=== PATIENT | male | born 1970 | race Two or more races ===

== ENCOUNTER 2024-05-25 09:35 | Emergency (ER) | payer MEDICAID, OTHER ==
[~2024-05-25] VITALS: Ht 157.5 cm; Wt 54.2 kg
[2024-05-25 09:45] VITALS: BP 102/65; PULSE 78; RESP 18; TEMP 98.2; O2SAT 99
--- NOTE | 2024-05-25 10:05 | ED.PDOC ---
History of Present Illness HPI Comments 53-year-old male with a history of kidney disease on dialysis Saturday hypertension diabetes came to the ER because he wanted his PICC line that is placed into the subclavian vein to be removed. He was here few days ago for removal for which she was referred to come back today. Patient did have his dialysis prior to coming to the ER. Denies chest pain. Denies shortness a breath. He does state that the PICC line was placed few months ago for sepsis. He is currently not on any antibiotics. Denies any other symptoms. Chief Complaint: Tube Replacement Time Seen by MD: 09:44 Primary Care Provider: ambrose Reviewed Notes: Nurses Notes, Medications, Allergies Allergies: Coded Allergies: NO KNOWN ALLERGIES (Unverified , 05/25/24) Information Source: Patient Mode of Arrival: Wheelchair Severity: Moderate Timing: Months Duration: Since onset Past Medical History PAST MEDICAL HISTORY: DM, ESRD, HTN Surgical History: Denies all surgeries Social History Smoker: Non-Smoker Alcohol: Denies ETOH Use Drugs: Denies Drug Use Constitutional: denies: chills, diaphoresis, fatigue, fever, malaise, sweats, weakness, others EENTM: denies: blurred vision, double vision, ear bleeding, ear discharge, ear drainage, ear pain, ear ringing, eye pain, eye redness, hearing loss, mouth pain, mouth swelling, nasal discharge, nose bleeding, nose congestion, nose pain, photophobia, tearing, throat pain, throat swelling, voice changes, others Respiratory: denies: cough, hemoptysis, orthopnea, SOB at rest, shortness of breath, SOB with excertion, stridor, wheezing, others Cardiovascular: denies: chest pain, dizzy spells, diaphoresis, Dyspnea on exertion, edema, irregular heart beat, left arm pain, lightheadedness, palpitations, PND, syncope, others Gastrointestinal: denies: abdomen distended, abdominal pain, blood streaked bowels, constipated, diarrhea, dysphagia, difficulty swallowing, hematemesis, melena, nausea, poor appetite, poor fluid intake, rectal bleeding, rectal pain, vomiting, others Genitourinary: denies: burning, dysuria, flank pain, frequency, hematuria, incontinence, penile discharge, penile sore, pain, testicle pain, testicle swelling, urgency, others Neurological: denies: dizziness, fainting, headache, left sided numbness, left sided weakness, numbness, paresthesia, pre-existing deficit, right sided numbne ss, right sided weakness, seizure, speech problems, tingling, tremors, weakness, others Musculoskeletal: denies: back pain, gout, joint pain, joint swelling, muscle pain, muscle stiffness, neck pain, others Integumetry: denies: bruises, change in color, change in hair/nails, dryness, laceration, lesions, lumps, rash, wounds, others Allergic/Immunocompromised: denies: Difficulty Healing, Frequent Infections, Hives, Itching, others Hematologic/Lymphatic: denies: anemia, blood clots, easy bleeding, easy bruising, swollen glands, others Endocrine: denies: excessive hunger, excessive sweating, excessive thirst, excessive urination, flushing, intolerance to cold, intolerance to heat, unexplained weight gain, unexplained weight loss, others Psychiatric: denies: anxiety, bipolar disorder, depression, hopeless, panic disorder, schizophrenia, sleepless, suicidal, others Physical Exam General Appearance: Moderate Distress HEENT: Normal ENT Inspection, Pharynx Normal, TMs Normal Neck: Full Range of Motion, Non-Tender, Normal, Normal Inspection Respiratory: Chest Non-Tender, Lungs Clear, No Accessory Muscle Use, No Respiratory Distress, Normal Breath Sounds Cardiovascular: No Edema, No JVD, No Murmur, No Gallop, Normal Peripheral Pulses, Regular Rate/Rhythm Breast Exam: Deferred Gastrointestinal: No Organomegaly, Non Tender, No Pulsatile Mass, Normal Bowel Sounds, Soft Genitalia: Deferred Pelvic: Deferred Rectal: Deferred Extremities: No calf tenderness, No pedal edema Musculoskeletal : Apperance: Normal Neurologic: Alert, No Motor Deficits, No Sensory Deficits Cerebellar Function: NOT DONE Reflexes: NOT DONE Skin: Normal Color Peripheral Pulses: 3+ Radial (R), 3+ Radial (L) Lymphatic: No Adenopathy Was a procedure done? Was a procedure done?: No Differential Dx Considerations may include: Anemia Electrolyte imbalance X-Ray, Labs, Meds, VS Vital Signs Date Time Temp Pulse Resp B/P (MAP) Pulse Ox O2 Delivery O2 Flow Rate FiO2 05/25/24 09:45 98.2 78 18 102/65 (77) 99 98.2 05/25/24 09:45 78 18 99 Room Air* 0 21 05/25/24 09:42 98.3 79 17 130/75 (93) 95 98.3 Lab Test 05/25/24 10:23 Range/Units Prothrombin Time 12.0 H 9.3-11.8 sec Prothrombin Time INR 1.15 0.9-1.15 Patient alert. Has PICC line placed into the subclavian vein. Vitals stable. Answering all questions. Just came from dialysis. No leg swelling. No shortness a breath. No sign of any infection. Patient comfortable. Intervention radiology consultation. Explained to the patient. Continue monitoring. Time of 1ST Reevaluation: 10:03 Reevaluation 1ST: Improved Patient Education/Counseling: Diagnosis, Treatment, Prognosis, Need For Follow Up Family Education/Counseling: No Family Present Departure 1 Departure Time of Disposition: 10:04 Impression: Primary Impression: End stage renal disease Disposition: ADMITTED INPATIENT Admit to: Med Surg Condition: Guarded Critical Care Note Critical Care Time?: No Stability Stability form required: No Heart Score Heart Score: Heart Score Response (Comments) Value History N/A 0 EKG N/A 0 Age N/A 0 Risk Factors N/A 0 Troponin N/A 0 Total 0 SESAR ROSS MD May 25, 2024 10:05
[2024-05-25 10:53] LABS: INR 1.15 (0.9-1.15)
[2024-05-25 11:22] LABS: Chloride 99 mmol/L (98-107); Potassium 3.5 mmol/L (3.5-5.1); Sodium 138 mmol/L (136-145)
[2024-05-25 11:23] LABS: Anion Gap 7 (5-15)
[2024-05-25 11:24] LABS: Basophils # (auto) 0.1 10 ^3/uL (0-0.2); Basophils % (auto) 1.3 % (0.0-2.0); Calcium 9.3 mg/dL (8.7-10.4); Eosinophils # (auto) 0.2 10 ^3/uL (0-0.8); Eosinophils % (auto) 4.5 % (0.0-7.0); Hematocrit 44.7 % (41.0-53.0); Hemoglobin 15.3 g/dL (13.5-17.5); Lymphocytes # (auto) 1.9 10 ^3/uL (0.4-5.4); Lymphocytes % (auto) 35.7 % (10.0-50.0); Mean Corpuscular Hemoglobin 31.9 pg (28.0-32.0); Mean Corpuscular Hgb Conc. 34.2 g/dL (32.0-36.0); Mean Corpuscular Volume 93.5 fL (80.0-100.0); Monocytes # (auto) 0.3 10 ^3/uL (0-1.3); Monocytes % (auto) 6.6 % (0.0-12.0); Neutrophils # (auto) 2.7 10 ^3/uL (1.6-8.6); Neutrophils % (auto) 51.9 % (37.0-80.0); Nucleated Red Blood Cells % 0.1 %; Platelet Count (auto) 109 10^3/uL (140-450); Red Blood Cells 4.78 10^6/uL (4.5-5.90); Red Cell Distribution Width 16.4 % (11.8-14.3); White Blood Cell 5.2 10^3/uL (4.4-10.8)
[2024-05-25 11:30] LABS: Blood Urea Nitrogen 27 mg/dL (9-23); Carbon Dioxide 32 mmol/L (20-31); Glucose 168 mg/dL (74-106)
== END 2024-05-25 17:55 | disposition left against medical advice (07) ==
LOC: ER 09:35
DX: I12.0 Hypertensive chronic kidney disease with stage 5 chronic kidney disease or end stage renal disease (principal); E11.22 Type 2 diabetes mellitus with diabetic chronic kidney disease; N18.6 End stage renal disease; Z45.2 Encounter for adjustment and management of vascular access device; Z99.2 Dependence on renal dialysis
CPT/HCPCS: 36415; 80048; 85025; 85610

== ENCOUNTER 2024-06-25 14:59 | Emergency (ER) | payer MEDICAID ==
[~2024-06-25] VITALS: Ht 165.1 cm; Wt 77.5 kg
[2024-06-25 15:12] VITALS: BP 148/79; PULSE 90; RESP 14; TEMP 98.5; O2SAT 100
--- NOTE | 2024-06-25 15:25 | ED.PDOC ---
HPI (NEURO) HPI Comments A 53 YEAR OLD MALE BASHIR PRESENTS TO THE ED WITH CHIEF COMPLAINT OF HEADACHE. PATIENT REPORTS THAT HE STARTED TO EXPERIENCE A BILATERAL TEMPORAL HEADACHE WITH ASSOCIATED RINGING IN BILATERAL EARS AND DIARRHEA, SOILING HIMSELF ABOUT 1.5 HOURS AGO. PT HAS HX OF CVA WITH LEFT SIDE WEAKNESS AND RENAL DIALYSIS 3 DAYS WITHIN ONE WEEK. PATIENT DENIES FALL INJURY, FEVER, SOB, CHEST PAIN, ABD PAIN, NAUSEA, VOMITING, DIZZINESS, SLURRY SPEECH, WEAKNESS AND OTHER COMPLAINTS. NO OTHER SYMPTOMS REPORTED AT THIS TIME OF CARE. Chief Complaint: Headache Time Seen by MD: 15:17 Primary Care Provider: ambrose Reviewed Notes: Nurses Notes, Sizing Sponger Notes, Medications, Allergies Information Source: Patient, Emergency Med Personnel Mode of Arrival: EMS Severity: Moderate Headache Severity: Moderate Timing: Hours Duration: Since onset, Hours Prehospital treatment: None Headache Quality: Aching Headache Location: Temporal Onset: At rest Circumstances: Spontaneous Associated Signs and Symptoms: Headache, Diarrhea Past Medical History PAST MEDICAL HISTORY: Anemia, DM, ESRD, HTN Surgical History: Denies all surgeries Family History Family History: Reviewed,noncontributory to illness Social History Smoker: Non-Smoker Alcohol: Denies ETOH Use Drugs: Denies Drug Use Lives In: Home Constitutional: denies: chills, diaphoresis, fatigue, fever, malaise, sweats, weakness, others EENTM: reports: ear ringing; denies: blurred vision, double vision, ear bleeding, ear discharge, ear drainage, ear pain, eye pain, eye redness, hearing loss, mouth pain, mouth swelling, nasal discharge, nose bleeding, nose congestion, nose pain, photophobia, tearing, throat pain, throat swelling, voice changes, others Respiratory: denies: cough, hemoptysis, orthopnea, SOB at rest, shortness of breath, SOB with excertion, stridor, wheezing, others Cardiovascular: denies: chest pain, dizzy spells, diaphoresis, Dyspnea on exertion, edema, irregular heart beat, left arm pain, lightheadedness, palpitations, PND, syncope, others Gastrointestinal: reports: diarrhea; denies: abdomen distended, abdominal pain, blood streaked bowels, constipated, dysphagia, difficulty swallowing, hematemesis, melena, nausea, poor appetite, poor fluid intake, rectal bleeding, rectal pain, vomiting, others Genitourinary: denies: burning, dysuria, flank pain, frequency, hematuria, incontinence, penile discharge, penile sore, pain, testicle pain, testicle swelling, urgency, others Neurological: reports: headache; denies: dizziness, fainting, left sided numbn ess, left sided weakness, numbness, paresthesia, pre-existing deficit, right sided numbness, right sided weakness, seizure, speech problems, tingling, tremors, weakness, others Musculoskeletal: denies: back pain, gout, joint pain, joint swelling, muscle pain, muscle stiffness, neck pain, others Integumetry: denies: bruises, change in color, change in hair/nails, dryness, laceration, lesions, lumps, rash, wounds, others Allergic/Immunocompromised: denies: Difficulty Healing, Frequent Infections, Hives, Itching, others Hematologic/Lymphatic: denies: anemia, blood clots, easy bleeding, easy bruising, swollen glands, others Endocrine: denies: excessive hunger, excessive sweating, excessive thirst, excessive urination, flushing, intolerance to cold, intolerance to heat, unexplained weight gain, unexplained weight loss, others Psychiatric: denies: anxiety, bipolar disorder, depression, hopeless, panic disorder, schizophrenia, sleepless, suicidal, others All Other Systems: Reviewed and Negative Physical Exam General Appearance: No Apparent Distress, Normal HEENT: PERRL/EOMI, Pharynx Normal, TM Abnormal (L), TM Abnormal (R), Other (BILATERAL EAR CANAL REDNESS, DULL AND EFFUSION, NO DRAINAGE, BLEEDING AND BLOOD CLOTS. ) Neck: Full Range of Motion, Non-Tender, Normal, Normal Inspection Respiratory: Chest Non-Tender, Lungs Clear, No Accessory Muscle Use, No Respiratory Distress, Normal Breath Sounds Cardiovascular: No Edema, No JVD, No Murmur, No Gallop, Normal Peripheral Pulses, Regular Rate/Rhythm Breast Exam: Deferred Gastrointestinal: No Organomegaly, Non Tender, No Pulsatile Mass, Normal Bowel Sounds, Soft Genitalia: Deferred Pelvic: Deferred Rectal: Deferred Extremities: No calf tenderness, Normal capillary refill, Normal inspection, Normal range of motion, Non-tender, No pedal edema Musculoskeletal : Apperance: Normal Neurologic: Alert, instructional material director II-XII nml as Tested, Headache, No Motor Deficits, Normal Affect, Normal Mood, No Sensory Deficits Cerebellar Function: Normal Reflexes: Normal Skin: Dry, Normal Color, Warm Peripheral Pulses: 2+ carotid (R), 2+ carotid (L) Lymphatic: No Adenopathy Was a procedure done? Was a procedure done?: No Differential Diagnosis (SZ) Seizure: N/A General Weakness: N/A Headache: Cluster, Intracerebral Hemorrhage, Mass Lesion, Sinusitis, Other (OTITIS EXTERNAL OF BOTH EARS ) X-Ray, Labs, Meds, VS Vital Signs Date Time Temp Pulse Resp B/P (MAP) Pulse Ox O2 Delivery O2 Flow Rate FiO2 06/25/24 15:12 98.5 90 14 148/79 (102) 100 98.5 06/25/24 15:12 90 14 100 Room Air 06/25/24 15:02 98.5 90 14 148/79 (102) 100 98.5 Current Medications Medications (Trade) Dose Ordered Sig/Jaxon Route Start Time Stop Time Status Last Admin Acetaminophen (Tylenol Tablet Or Capsule) 1,000 mg ONCE ONCE PO 06/25/24 16:00 06/25/24 16:01 DC 06/25/24 16:00 CT HEAD: FINDINGS: There is no evidence of acute intracranial hemorrhage, extra-axial collection, mass effect, midline shift, herniation or hydrocephalus. The ventricles, sulci and cisterns are age appropriate. The macdonald-white differentiation is intact. The visualized paranasal sinuses and mastoid air cells are clear. The surrounding soft tissues and osseous structures are unremarkable. IMPRESSION: No acute intracranial abnormality. X-Ray, Labs, Meds, VS Comment EXTERNAL MEDICAL RECORDS REVIEWED: [NONE] INDEPENDENT HISTORIANS: [NONE] SOCIAL DETERMINANTS OF HEALTH: [NONE] LABS ORDERED: NONE REVIEWED AND INTERPRETED RESULTS: CT HEAD IMAGING ORDERED: CT HEAD TREATMENTS ORDERED: TYLENOL 1G PO PROCEDURES PERFORMED: NONE CRITICAL CARE TIME: NONE I HAVE DISCUSSED THE PATIENT WITH THE ATTENDING PHYSICIAN DR. ROSS AND HE AGREES WITH THE PATIENT'S PLAN OF CARE AND DISPOSITION. BASED ON HISTORY OF PRESENT ILLNESS, AND PHYSICAL EXAM, PATIENT WILL BE DISCHARGED HOME. DISCUSSED PLAN FOR DISCHARGE HOME WITH RX: CIPRODEX OTIC AND TYLENOL 650MG. MEDICATION WARNINGS GIVEN. SHARED DECISION MAKING: DISCUSSED WITH PATIENT THAT THEIR WORKUP WAS NORMAL. PATIENT INSTRUCTED TO FOLLOW UP WITH PRIMARY CARE PROVIDER IN 1-2 DAYS FOR RE- EVALUATION OF SYMPTOMS. PATIENT VERBALIZES UNDERSTANDING TO RETURN TO ED FOR NEW OR WORSENING SYMPTOMS OR IF FOLLOW UP WITH PCP CANNOT BE OBTAINED. PATIENT FEELS COMFORTABLE GOING HOME AT THIS TIME. ALL QUESTIONS ADDRESSED AT TIME OF DISCHARGE. Time of 1ST Reevaluation: 16:30 Reevaluation 1ST: Improved Patient Education/Counseling: Diagnosis, Treatment, Need For Follow Up Family Education/Counseling: Diagnosis, Treatment, No Family Present Medical Screening: No EMC Exist At This Time Departure 1 Departure Time of Disposition: 16:45 Impression: Primary Impression: Acute headache Qualified Codes: R51.9 - Headache, unspecified Additional Impressions: External otitis of left ear Qualified Codes: H60.502 - Unspecified acute noninfective otitis externa, left ear External otitis of right ear Qualified Codes: H60.501 - Unspecified acute noninfective otitis externa, right ear Disposition: 01 HOME / SELF CARE / HOMELESS Condition: Stable Additional Instructions: FOLLOW-UP WITH PCP IN 1 TO 2 DAYS. TAKE MEDICATIONS PRESCRIBED. RETURN TO ED FOR ANY NEW OR WORSENING SYMPTOMS. e-Prescriptions Ciprofloxacin-Hydrocortisone (Cipro Hc 0.2-1 %) 1 Yaritza Yaritza 4 DROP OT BID, #7.5 ML Prov: LONDON VERMA 06/25/24 Acetaminophen (Tylenol Extra Strength Fo) 500 Mg Tab 1000 MG PO BID, #30 TAB Prov: LONDON VERMA 06/25/24 Discharged With: Self, Relative Critical Care Note Critical Care Time?: No Stability Stability form required: No Heart Score Heart Score: Heart Score Response (Comments) Value History N/A 0 EKG N/A 0 Age N/A 0 Risk Factors N/A 0 Troponin N/A 0 Total 0 I personally scribed for LONDON VERMA ([email or web address]) on 06/25/24 at 15:25. Electronically submitted by Robert Gongora ([email or web address]). I personally scribed for LONDON VERMA ([email or web address]) on 06/25/24 at 16:12. Electronically submitted by Robert Gongora ([email or web address]). LONDON VERMA Jun 25, 2024 15:25
[2024-06-25] MEDS: ACETAMINOPHEN 500 MG TAB or CAP PO ONE (16:00)
--- NOTE | 2024-06-25 16:03 | DVH ---
EXAM: CT HEAD WITHOUT CONTRAST INDICATION: HEADACHE TODAY TECHNIQUE: CT of the head without intravenous contrast. Radiation Dose : 1. Head: CT Dose: CTDI volume is 91.56 mGy. Dose-length product is 1802.91 mGy*cm The dose indicators for CT are the volume Computed Tomography (CT) Dose Index (CTDIvol) and the Dose Length Product (DLP), and are measured in units of mGy and mGy-cm, respectively. These indicators are not patient dose, but values generated from the CT scanner acquisition factors. The report includes radiation exposure data for exposures received during this examination. COMPARISON: None FINDINGS: There is no evidence of acute intracranial hemorrhage, extra-axial collection, mass effect, midline s hift, herniation or hydrocephalus. The ventricles, sulci and cisterns are age appropriate. The macdonald-white differentiation is intact. The visualized paranasal sinuses and mastoid air cells are clear. The surrounding soft tissues and osseous structures are unremarkable. IMPRESSION: No acute intracranial abnormality. Radiation optimization: All CT scans at this facility use at least one of these dose optimization daniel hniques: automated exposure control mA and/or kV adjustment per patient size (includes targeted exam s where dose is matched to clinical indication) or iterative reconstruction.
[2024-06-25] MEDS ORDERED: ACET-1304 PO (16:19)
[2024-06-25] MEDS ORDERED: CIPRSUS OT (16:19)
== END 2024-06-25 16:41 | disposition home or self-care (01) ==
LOC: EDBD 14:59 → ER 15:01
DX: H60.91 Unspecified otitis externa, right ear (principal); H60.92 Unspecified otitis externa, left ear; R51.9 Headache, unspecified; R19.7 Diarrhea, unspecified; I12.0 Hypertensive chronic kidney disease with stage 5 chronic kidney disease or end stage renal disease; E11.22 Type 2 diabetes mellitus with diabetic chronic kidney disease; N18.6 End stage renal disease; Z99.2 Dependence on renal dialysis
CPT/HCPCS: 70450

== ENCOUNTER 2024-08-10 16:00 | Inpatient (IN) | payer MEDICAID ==
[~2024-08-10] VITALS: Ht 157.5 cm; Wt 58.8 kg
[~2024-08-10 16:00] MED LIST: ACET-1304 PO; CIPRSUS OT
--- NOTE | 2024-08-10 16:11 | ED.PDOC ---
History of Present Illness HPI Comments 53-year-old male brought by paramedics from home because of constipation for the past 10 days. He does get dialysis on Saturday. He went to his dialysis this morning went home still could not have a bowel movement called the paramedics this afternoon. When paramedics arrived his systolic blood pressure was in the 90s when he was child has a 200 mL of normal saline his blood pressure went up to systolic 137. He has tried enema without any relief. He does have a history of hypertension diabetes coronary artery disease chronic kidney disease. Denies shortness a breath. Denies chest pain. Denies any other symptoms. Time Seen by MD: 16:02 Primary Care Provider: ambrose Reviewed Notes: Nurses Notes, Medications, Allergies Allergies: Coded Allergies: NO KNOWN ALLERGIES (Unverified , 05/25/24) Home Meds Active Scripts Ciprofloxacin-Hydrocortisone (Cipro Hc 0.2-1 %) 1 Yaritza Yaritza, 4 DROP OT BID, #7.5 ML Prov:LONDON VERMA 06/25/24 Acetaminophen (Tylenol Extra Strength Fo) 500 Mg Tab, 1000 MG PO BID, #30 TAB Prov:LONDON VERMA 06/25/24 Information Source: Patient, Emergency Med Personnel Mode of Arrival: EMS Severity: Moderate Timing: Days Duration: Since onset Past Medical History PAST MEDICAL HISTORY: Anemia, DM, ESRD, HTN Surgical History: Denies all surgeries Family History Family History: Reviewed,noncontributory to illness Social History Smoker: Non-Smoker Alcohol: Denies ETOH Use Drugs: Denies Drug Use Lives In: Home Constitutional: denies: chills, diaphoresis, fatigue, fever, malaise, sweats, weakness, others EENTM: denies: blurred vision, double vision, ear bleeding, ear discharge, ear drainage, ear pain, ear ringing, eye pain, eye redness, hearing loss, mouth pain, mouth swelling, nasal discharge, nose bleeding, nose congestion, nose pain, photophobia, tearing, throat pain, throat swelling, voice changes, others Respiratory: denies: cough, hemoptysis, orthopnea, SOB at rest, shortness of breath, SOB with excertion, stridor, wheezing, others Cardiovascular: denies: chest pain, dizzy spells, diaphoresis, Dyspnea on exertion, edema, irregular heart beat, left arm pain, lightheadedness, palpitations, PND, syncope, others Gastrointestinal: reports: abdominal pain; denies: abdomen distended, blood streaked bowels, constipated, diarrhea, dysphagia, difficulty swallowing, hematemesis, melena, nausea, poor appetite, poor fluid intake, rectal bleeding, rectal pain, vomiting, others Genitourinary: denies: burning, dysuria, flank pain, frequency, hematuria, incontinence, penile discharge, penile sore, pain, testicle pain, testicle swelling, urgency, others Neurological: denies: dizziness, fainting, headache, left sided numbness, left sided weakness, numbness, paresthesia, pre-existing deficit, right sided numbne ss, right sided weakness, seizure, speech problems, tingling, tremors, weakness, others Musculoskeletal: denies: back pain, gout, joint pain, joint swelling, muscle pain, muscle stiffness, neck pain, others Integumetry: denies: bruises, change in color, change in hair/nails, dryness, laceration, lesions, lumps, rash, wounds, others Allergic/Immunocompromised: denies: Difficulty Healing, Frequent Infections, Hives, Itching, others Hematologic/Lymphatic: denies: anemia, blood clots, easy bleeding, easy bruising, swollen glands, others Endocrine: denies: excessive hunger, excessive sweating, excessive thirst, excessive urination, flushing, intolerance to cold, intolerance to heat, unexplained weight gain, unexplained weight loss, others Psychiatric: denies: anxiety, bipolar disorder, depression, hopeless, panic disorder, schizophrenia, sleepless, suicidal, others Physical Exam General Appearance: Moderate Distress HEENT: Normal ENT Inspection, Pharynx Normal, TMs Normal Neck: Full Range of Motion, Non-Tender, Normal, Normal Inspection Respiratory: Chest Non-Tender, Lungs Clear, No Accessory Muscle Use, No Respiratory Distress, Normal Breath Sounds Cardiovascular: No Edema, No JVD, No Murmur, No Gallop, Normal Peripheral Pulses, Regular Rate/Rhythm Breast Exam: Deferred Gastrointestinal: No Organomegaly, Non Tender, No Pulsatile Mass, Normal Bowel Sounds, Soft Genitalia: Deferred Pelvic: Deferred Rectal: Deferred Extremities: No calf tenderness, Normal capillary refill, Normal inspection, Normal range of motion, Non-tender, No pedal edema Musculoskeletal : Apperance: Normal Neurologic: Alert, smt technician II-XII nml as Tested, No Motor Deficits, Normal Affect, Normal Mood, No Sensory Deficits Cerebellar Function: NOT DONE Reflexes: NOT DONE Skin: Dry, Normal Color, Warm Peripheral Pulses: 3+ Radial (R), 3+ Radial (L) Lymphatic: No Adenopathy Was a procedure done? Was a procedure done?: No EKG EKG : Pulse Rate (adult): 86 Cardiac Rhythm: NSR Hypertrophy: LVH Differential Dx Considerations may include: Anemia Electrolyte imbalance X-Ray, Labs, Meds, VS Vital Signs Date Time Temp Pulse Resp B/P (MAP) Pulse Ox O2 Delivery O2 Flow Rate FiO2 08/10/24 16:11 86 08/10/24 16:10 97.4 86 18 137/75 (95) 99 97.4 08/10/24 16:07 86 Lab Test 08/10/24 16:35 Range/Units White Blood Count 3.6 L 4.4-10.8 10^3/uL Red Blood Count 2.59 L 4.5-5.90 10^6/uL Hemoglobin 7.8 L 13.5-17.5 g/dL Hematocrit 22.2 L 41.0-53.0 % Mean Corpuscular Volume 85.7 80.0-100.0 fL Mean Corpuscular Hemoglobin 30.1 28.0-32.0 pg Mean Corpuscular Hemoglobin Concent 35.1 32.0-36.0 g/dL Red Cell Distribution Width 13.4 11.8-14.3 % Platelet Count 146 140-450 10^3/uL Mean Platelet Volume 7.3 6.9-10.8 fL Neutrophils (%) (Auto) 47.3 37.0-80.0 % Lymphocytes (%) (Auto) 39.2 10.0-50.0 % Monocytes (%) (Auto) 6.9 0.0-12.0 % Eosinophils (%) (Auto) 5.3 0.0-7.0 % Basophils (%) (Auto) 1.3 0.0-2.0 % Neutrophils # (Auto) 1.7 1.6-8.6 10 ^3/uL Lymphocytes # (Auto) 1.4 0.4-5.4 10 ^3/uL Monocytes # (Auto) 0.3 0-1.3 10 ^3/uL Eosinophils # (Auto) 0.2 0-0.8 10 ^3/uL Basophils # (Auto) 0 0-0.2 10 ^3/uL Nucleated Red Blood Cells 0.1 % Sodium Level 137 136-145 mmol/L Potassium Level 3.9 3.5-5.1 mmol/L Chloride Level 99 98-107 mmol/L Carbon Dioxide Level 30 20-31 mmol/L Anion Gap 8 5-15 Blood Urea Nitrogen 34 H 9-23 mg/dL Creatinine 5.11 H 0.700-1.30 mg/dL Glomerular Filtration Rate Calc 13 >90 mL/min BUN/Creatinine Ratio 6.7 L 10.0-20.0 Serum Glucose 101 74-106 mg/dL Calcium Level 8.2 L 8.7-10.4 mg/dL Lipase 36 12-53 U/L Patient alert. Complaining of abdominal pain. Vitals stable. Answering questions. Has not had a bowel movement in days. Abdomen is soft. Continues to have pain. History of coronary artery disease. Reviewed his history. Explained to the patient. Continue monitoring. EKG reviewed does show LVH. Time of 1ST Reevaluation: 16:08 Reevaluation 1ST: Unchanged Patient Education/Counseling: Diagnosis, Treatment, Prognosis Family Education/Counseling: No Family Present Departure 1 Departure Time of Disposition: 16:09 Impression: Primary Impression: Intractable abdominal pain Additional Impressions: Constipation Qualified Codes: K59.01 - Slow transit constipation Hypotension Qualified Codes: I95.9 - Hypotension, unspecified Disposition: ADMITTED INPATIENT Admit to: Med Surg Condition: Guarded Critical Care Note Critical Care Time?: No Stability Stability form required: No Heart Score Heart Score: Heart Score Response (Comments) Value History Slightly Suspicious 0 EKG Normal 0 Age 45-64 1 Risk Factors >3 or Hx ASHD 2 Troponin Normal limit 0 Total 3 SESAR ROSS MD Aug 10, 2024 16:11
[2024-08-10 16:47] LABS: Basophils # (auto) 0 10 ^3/uL (0-0.2); Basophils % (auto) 1.3 % (0.0-2.0); Eosinophils # (auto) 0.2 10 ^3/uL (0-0.8); Eosinophils % (auto) 5.3 % (0.0-7.0); Hematocrit 22.2 % (41.0-53.0); Hemoglobin 7.8 g/dL (13.5-17.5); Lymphocytes # (auto) 1.4 10 ^3/uL (0.4-5.4); Lymphocytes % (auto) 39.2 % (10.0-50.0); Mean Corpuscular Hemoglobin 30.1 pg (28.0-32.0); Mean Corpuscular Hgb Conc. 35.1 g/dL (32.0-36.0); Mean Corpuscular Volume 85.7 fL (80.0-100.0); Monocytes # (auto) 0.3 10 ^3/uL (0-1.3); Monocytes % (auto) 6.9 % (0.0-12.0); Neutrophils # (auto) 1.7 10 ^3/uL (1.6-8.6); Neutrophils % (auto) 47.3 % (37.0-80.0); Nucleated Red Blood Cells % 0.1 %; Platelet Count (auto) 146 10^3/uL (140-450); Red Blood Cells 2.59 10^6/uL (4.5-5.90); Red Cell Distribution Width 13.4 % (11.8-14.3); White Blood Cell 3.6 10^3/uL (4.4-10.8)
[2024-08-10 16:58] LABS: Chloride 99 mmol/L (98-107); Potassium 3.9 mmol/L (3.5-5.1); Sodium 137 mmol/L (136-145)
[2024-08-10 16:59] LABS: Anion Gap 8 (5-15); Carbon Dioxide 30 mmol/L (20-31)
[2024-08-10 17:01] LABS: Calcium 8.2 mg/dL (8.7-10.4)
[2024-08-10 17:04] LABS: BUN/Creatinine Ratio 6.7 (10.0-20.0); Glucose 101 mg/dL (74-106); Lipase 36 U/L (12-53)
[2024-08-10 17:05] LABS: Blood Urea Nitrogen 34 mg/dL (9-23)
--- NOTE | 2024-08-10 18:11 | DVH ---
Indication: diffusepain Technique: CT axial images of the abdomen and pelvis are obtained without contrast. Coronal and sagit juanito reformats were obtained. Radiation Dose Information: CTDI volume is 5.29 mGy. Dose-length product is 307.84 mGy*cm Comparison: None FINDINGS: There is limited interpretation of the abdomen and pelvis without administration of intravenous contr ast. Lung bases demonstrate pulmonary emphysematous changes. Bilateral atelectasis. Adrenal glands, spleen, pancreas unremarkable in shape. Gallbladder sludge / cholelithiasis. Liver is unremarkable in shape. Bilateral renal cysts. No hydronephrosis. Stomach is moderately distended. Small bowel loops are normal in caliber. Large volume stool within the colon. No secondary signs for appendicitis. Abdominal aortic atherosclerotic disease. Bladder contracted. No free pelvic fluid. No inguinal lymph adenopathy. [id number] thoracolumbar degenerative disc disease. Soft tissue edema / anasarca. IMPRESSION: 1. Large volume stool within the colon. 2. Pulmonary emphysema 3. Gallbladder sludge/cholelithiasis
[2024-08-10] MEDS ORDERED: ONDANSETRON HCL 4 MG/2 ML VIAL IV PRN (19:15)
[2024-08-10] MEDS ORDERED: ACETAMINOPHEN 325 MG TAB PO PRN (19:15)
[2024-08-10] MEDS ORDERED: DEXTROSE (50%) 50ML SYRG IV PRN (19:15)
[2024-08-10] MEDS ORDERED: HYDROcodone-ACET 5/325MG TAB PO PRN (19:15)
[2024-08-10] MEDS ORDERED: DOCUSATE SOD 100 MG CAP PO PRN (19:15)
[2024-08-10 19:19] VITALS: PULSE 16; RESP 16; O2SAT 96
[2024-08-10] MEDS ORDERED: NITROGLYCERIN 0.4 MG SL TAB SL PRN (20:00)
[2024-08-10] MEDS ORDERED: MORPHINE SULFATE INJ 2 MG/ml SYRG IV PRN (20:00)
--- NOTE | 2024-08-10 20:14 | DVHHP2 ---
History of Present Illness Reason for Visit: End-stage renal disease on hemodialysis History of Present Illness The patient is a 53-year-old male with past medical history of anemia, DM, ESRD on hemodialysis -, and hypertension who presented to [facility] ED with complaint of intractable abdominal pain. Patient reports symptoms progressively get worse with constipation, unable to have bowel movement for the past 10 days. Patient was seen and evaluated in the ED, laboratory data shows WBC 3.6, hemoglobin 7.8, hematocrit 22.2, platelets 146, sodium 137, potassium 3.9, BUN 34, creatinine 5.11, glucose 101, calcium 8.2, lipase 36, blood pressure 137/75, heart rate 86, temperature 97.4 F, O2 saturation 99% on room air. Abdomen/pelvis CT revealing large volume stool within the colon, pulmonary emphysema, gallbladder sludge/cholelithiasis. Please see medication orders section in the computer. On my assessment, patient denied chest pain, no headache, no dizziness, no shortness of breath, no diaphoresis, no nausea, no vomiting, no fever, no chills. Patient was admitted for further evaluation and medical management. Past Medical History Anemia, DM, ESRD, HTN Past Surgical History Denies all surgeries Family History Reviewed, noncontributory to the management of this case. Past Social History The patient lives at home, denies smoking, alcohol or illicit drugs abuse. Review of Systems Constitutional: Yes: Weakness; No: Fever, Chills, Sweats, Malaise, Other Eyes: No: Pain, Vision change, Conjunctivae inflammation, Eyelid inflammation, Other, Redness ENT: No: Ear pain, Ear discharge, Nose pain, Nose discharge, Nose congestion, Mouth pain, Mouth swelling, Throat pain, Throat swelling, Other Respiratory: No: Cough, Dry, Shortness of breath, SOB with excertion, Wheezing, Hemoptysis, Pleuritic Pain, Sputum, Wheezing, Other Cardiovascular: No: Chest Pain, Palpitations, Orthopnea, Paroxysmal Noc. Dyspnea, Edema, Lt Headedness, Other Gastrointestinal: Abdominal Pain, Constipation; No: Nausea, Vomiting, Diarrhea, Melena, Hematochezia, Other Genitourinary: No Dysuria, No Frequency, No Incontinence, No Hematuria, No Retention; Other (On hemodialysis) Musculoskeletal: No: other, neck pain, shoulder pain, arm pain, back pain, hand pain, leg pain, foot pain Skin: No: Rash, Lesions, Jaundice, Bruising, Other Neurological: No: Weakness, Numbness, Incoordination, Change in speech, Confusion, Seizures, Other Allergies: Coded Allergies: NO KNOWN ALLERGIES (Unverified , 05/25/24) Medications Current Medications Medications Dose Ordered Sig/Jaxon Route Start Time Stop Time Status Last Admin Dose Admin Diagnostic Test (Pha) 1 strip ACHS 08/10/24 22:00 Insulin Human Regular ACHS SC 08/10/24 22:00 Dextrose 50 ml UD PRN IV 08/10/24 19:15 Sodium Chloride 10 ml Q8HR IV 08/10/24 22:00 Acetaminophen/ Hydrocodone Bitart 1 tab Q4HP PRN PO 08/10/24 19:15 Ondansetron HCl 4 mg Q4HP PRN IV 08/10/24 19:15 Docusate Sodium 100 mg BIDPRN PRN PO 08/10/24 19:15 Acetaminophen 650 mg Q6HP PRN PO 08/10/24 19:15 Multivit/Ca Carb/ B Cmplx/FA/Prenat 1 tab DAILY PO 08/11/24 10:00 Sevelamer HCl 800 mg TIDWM PO 08/11/24 08:00 Exam Vital Signs Vital Signs Date Time Temp Pulse Resp B/P (MAP) Pulse Ox O2 Delivery O2 Flow Rate FiO2 08/10/24 19:19 16 16 96 Room Air* 0 21 08/10/24 19:17 98.1 116/76 (89) 98.1 General Appearance: Alert, Oriented X3, Cooperative, No acute distress HEENT: Atraumatic, PERRLA, EOMI, Mucous membr. moist/pink Respiratory: Normal air movement, Other (Diminished breath sounds) Cardiovascular: Regular rate, Normal S1, Normal S2, No murmurs Abdominal: Normal bowel sounds, Soft, No tenderness, No hepatospenomegaly, No masses Extremities: No clubbing, No cyanosis, No edema, Normal pulses, No tenderness/swelling Skin: No rashes, No breakdown, No significant lesion Neuro: Normal speech, Normal tone, Sensation intact, Cranial nerves 3-12 NL, Reflexes 2+, Other (Generalized weakness) Psych/Mental Status: Mental status NL, Mood NL Labs/Xrays Labs Test 08/10/24 16:35 Range/Units White Blood Count 3.6 L 4.4-10.8 10^3/uL Red Blood Count 2.59 L 4.5-5.90 10^6/uL Hemoglobin 7.8 L 13.5-17.5 g/dL Hematocrit 22.2 L 41.0-53.0 % Mean Corpuscular Volume 85.7 80.0-100.0 fL Mean Corpuscular Hemoglobin 30.1 28.0-32.0 pg Mean Corpuscular Hemoglobin Concent 35.1 32.0-36.0 g/dL Red Cell Distribution Width 13.4 11.8-14.3 % Platelet Count 146 140-450 10^3/uL Mean Platelet Volume 7.3 6.9-10.8 fL Neutrophils (%) (Auto) 47.3 37.0-80.0 % Lymphocytes (%) (Auto) 39.2 10.0-50.0 % Monocytes (%) (Auto) 6.9 0.0-12.0 % Eosinophils (%) (Auto) 5.3 0.0-7.0 % Basophils (%) (Auto) 1.3 0.0-2.0 % Neutrophils # (Auto) 1.7 1.6-8.6 10 ^3/uL Lymphocytes # (Auto) 1.4 0.4-5.4 10 ^3/uL Monocytes # (Auto) 0.3 0-1.3 10 ^3/uL Eosinophils # (Auto) 0.2 0-0.8 10 ^3/uL Basophils # (Auto) 0 0-0.2 10 ^3/uL Nucleated Red Blood Cells 0.1 % Sodium Level 137 136-145 mmol/L Potassium Level 3.9 3.5-5.1 mmol/L Chloride Level 99 98-107 mmol/L Carbon Dioxide Level 30 20-31 mmol/L Anion Gap 8 5-15 Blood Urea Nitrogen 34 H 9-23 mg/dL Creatinine 5.11 H 0.700-1.30 mg/dL Glomerular Filtration Rate Calc 13 >90 mL/min BUN/Creatinine Ratio 6.7 L 10.0-20.0 Serum Glucose 101 74-106 mg/dL Calcium Level 8.2 L 8.7-10.4 mg/dL Lipase 36 12-53 U/L PATIENT: VINCE COXDENISECT: [id number] UNIT: [id number] : 1970 LOC: ER ROOM / BED: / AGE / SEX: 53 / M ADM STATUS: REG ER SERVICE 1647 ORDERING PHYSICIAN: SESAR ROSS MD PROCEDURE(s): ABPL - CT AB PEL WO CON-NO ORAL OR IV REASON: diffusepain ORDER NUMBER(s): [id number], ACCESSION NUMBER(s): [id number] Indication: diffusepain Technique: CT axial images of the abdomen and pelvis are obtained without contrast. Coronal and sagittal reformats were obtained. Radiation Dose Information: CTDI volume is 5.29 mGy. Dose-length product is 307.84 mGy*cm Comparison: None FINDINGS: There is limited interpretation of the abdomen and pelvis without administration of intravenous contrast. Lung bases demonstrate pulmonary emphysematous changes. Bilateral atelectasis. Adrenal glands, spleen, pancreas unremarkable in shape. Gallbladder sludge/cholelithiasis. Liver is unremarkable in shape. Bilateral renal cysts. No hydronephrosis. Stomach is moderately distended. Small bowel loops are normal in caliber. Large volume stool within the colon. No secondary signs for appendicitis. Abdominal aortic atherosclerotic disease. Bladder contracted. No free pelvic fluid. No inguinal lymphadenopathy. [id number]-[id number] thoracolumbar degenerative disc disease. Soft tissue edema / anasarca. IMPRESSION: 1. Large volume stool within the colon. 2. Pulmonary emphysema 3. Gallbladder sludge/cholelithiasis Assessment/Plan Assessment/Plan Intractable abdominal pain Constipation Anemia, unspecified Slow transit constipation Generalized weakness End-stage renal disease on hemodialysis Plan 1. Admit to telemetry unit 2. Breathing treatment 3. Pain control management 4. Management of fluids and electrolytes 5. Consultation for Nephrology 6. Diagnostic tests CT of the abdomen/pelvis 7. DVT prophylaxis on SCDs 8. Repeat labs CBC, CMP in a.m. 9. Continue with current medical management 10. Treatment plan discussed with patient and RN. Patient verbalized understanding. Plan discussed with: Patient, Other (RN) My Orders Orders - NAKUL JUAREZ DNP Procedure Category Date Status Time Consistent DIET 08/11/24 Transmitted Carb(Ccho)Diabetes Breakfast *Dr. Dieter Green CONS 08/10/24 Transmitted -[place] 19:06 Type And Screen BBK 08/10/24 In Process 19:06 Glucose Blood PHA 08/10/24 In Process (Accu-Chek Comfort 22:00 Insulin R (Human) PHA 08/10/24 In Process (Insulin R) 22:00 Dextrose 50% Syringe PHA 08/10/24 In Process 19:15 Allergies TORO 08/10/24 In Process 19:06 Code Status CODE 08/10/24 Transmitted 19:06 Renal DIET 08/11/24 Transmitted Standard(2gna,3gk,Lopho) Breakfast Sodium Chloride Lock PHA 08/10/24 In Process (Saline Lock Ns) 22:00 Oxygen Per Hour RT 08/10/24 Transmitted 19:06 Hydrocodone-Acet PHA 08/10/24 In Process 5/325mg Tab ([place] 19:15 Ondansetron Hcl PHA 08/10/24 In Process (Zofran) 19:15 Docusate Sodium PHA 08/10/24 In Process Capsule (Colace 19:15 Complete Blood Count LAB 08/11/24 Verified 04:00 Comprehensive LAB 08/11/24 Verified Metabolic Panel 04:00 Condition: Serious TORO 08/10/24 In Process 19:06 Acetaminophen Tablet PHA 08/10/24 In Process (Tylenol Tablet) 19:15 Bedrest With Bathroom TORO 08/10/24 In Process Privileg 19:06 Sequential TORO 08/10/24 In Process Compression Device B-Complex W/ C & PHA 08/11/24 In Process Folic Tablet 10:00 Sevelamer (Renagel) PHA 08/11/24 In Process 08:00 Admit ADMIT 08/10/24 Transmitted 19:54 Nitroglycerin PHA 08/10/24 Transmitted Sublingual (Ntrostat 20:00 Morphine Sulfate PHA 08/10/24 Transmitted Injection 20:00 Stat Ekg For Chest TORO 08/10/24 Transmitted Pain 19:54 Notify Md Of Changes TORO 08/10/24 Transmitted From Base 19:54 Pre Assembly Wirer For TORO 08/10/24 Transmitted 24 Hours 19:54 Emergency Dysrhythmia TORO 08/10/24 Transmitted Protocol 19:54 Rhythm Strips Once TORO 08/10/24 Transmitted Every Shift 19:54 Oxygen By Nasal RT 08/10/24 Transmitted Cannula 19:54 Problem List: (1) Intractable abdominal pain (2) Constipation (3) Generalized weakness (4) Anemia, unspecified (5) Slow transit constipation (6) End stage renal disease Date of Service: Aug 10, 2024 Billing Provider: NAKUL JUAREZ DNP Common Visit Codes: [id number] INP/OBS CARE (HIGH) NAKUL JUAREZ DNP Aug 10, 2024 20:14
--- NOTE | 2024-08-10 22:39 | DVH ---
EXAM: US GALLBLADDER HISTORY: Gallbladder sludge/cholelithiasis COMPARISON: None TECHNIQUE: Right upper quadrant ultrasound was performed. Findings/impression: The liver measures 15 cm craniocaudal. Normal echotexture is noted. Portal vein demonstrates hepatopetal flow. The gallbladder demonstrates gallstones and biliary sludge with mild wall thickening. negative sonographic paul's sign. Common bile duct measures 0.6 cm. Findings are concerning for possible biliary obstruction and/or gallstones in the common bile duct. Recommend fu rther evaluation with HIDA scan or MRCP. Right kidney measures 9 cm craniocaudal. Left kidney measures 8 cm craniocaudal. Bilateral subcentime ter renal cysts. The bilateral kidneys appear atrophic and echogenic which may be from medical renal disease.
[2024-08-10] MEDS: SODIUM CHLOR 0.9% PF (SALINE LOCK) 10ML VIAL/SYR IV SCH (23:30)
[2024-08-10] MEDS: LACTULOSE 20Gm/30ML SOLN PO SCH (23:30)
[2024-08-10] MEDS: ACCU-CHEK COMFORT CURVE STRIP VI SCH (23:35)
[2024-08-10] MEDS: InsuLIN REG 1unit/0.01ml Soln (100units/ml) SC SCH (23:36)
[2024-08-11 06:24] LABS: Alanine Aminotransferase 28 U/L (7-40); Albumin 4.5 g/dL (3.2-4.8); Alkaline Phosphatase 103 U/L (46-116); Anion Gap 12 (5-15); Aspartate Aminotransferase 15 U/L (13-40); BUN/Creatinine Ratio 6.6 (10.0-20.0); Calcium 8.9 mg/dL (8.7-10.4); Carbon Dioxide 28 mmol/L (20-31); Glucose 95 mg/dL (74-106); Potassium 4.2 mmol/L (3.5-5.1); Sodium 137 mmol/L (136-145)
[2024-08-11 06:25] LABS: Bilirubin, Total 0.4 mg/dL (0.2-1.0)
[2024-08-11 06:26] LABS: Blood Urea Nitrogen 42 mg/dL (9-23); Chloride 97 mmol/L (98-107)
[2024-08-11 07:18] LABS: Basophils # (auto) 0.1 10 ^3/uL (0-0.2); Basophils % (auto) 1.5 % (0.0-2.0); Eosinophils # (auto) 0.2 10 ^3/uL (0-0.8); Eosinophils % (auto) 5.4 % (0.0-7.0); Hematocrit 21.7 % (41.0-53.0); Hemoglobin 7.7 g/dL (13.5-17.5); Lymphocytes # (auto) 1.5 10 ^3/uL (0.4-5.4); Lymphocytes % (auto) 35.4 % (10.0-50.0); Mean Corpuscular Hgb Conc. 35.3 g/dL (32.0-36.0); Mean Corpuscular Volume 84.9 fL (80.0-100.0); Monocytes # (auto) 0.3 10 ^3/uL (0-1.3); Monocytes % (auto) 7.6 % (0.0-12.0); Neutrophils # (auto) 2.1 10 ^3/uL (1.6-8.6); Neutrophils % (auto) 50.1 % (37.0-80.0); Platelet Count (auto) 144 10^3/uL (140-450); Red Blood Cells 2.55 10^6/uL (4.5-5.90); Red Cell Distribution Width 13.3 % (11.8-14.3); White Blood Cell 4.3 10^3/uL (4.4-10.8)
[2024-08-11 08:00] VITALS: PULSE 80; RESP 13; O2SAT 97
[2024-08-11] MEDS: SEVELAMER 800 MG TAB PO SCH (09:45)
[2024-08-11] MEDS: B-COMPLEX W/ C & FOLIC ACID(NEPHROVITE TAB) PO SCH (11:01)
--- NOTE | 2024-08-11 12:24 | ECG ---
[facility] Test Date: 2024-08-10 Test Time: 16:07:59 Pat Name: MISSY COX Department: ER Room: 0237T Gender: M Candy Feeder: ER : 1970 Requested By: SESAR ROSS Order Number: [id number] Reading MD: Isaiah Nix Measurements Intervals [place] Rate: 86 P: 47 MN: 160 QRS: 6 QRSD: 92 T: 4 QT: 388 QTc: 464 Interpretive Statements Sinus rhythm Left ventricular hypertrophy Electronically Signed On 08-12-2024 14:57:03 PDT by Isaiah Nix Please click the below link to view image of tracing.
--- NOTE | 2024-08-11 13:55 | DVHCONRES ---
Date Seen: Aug 11, 2024 Resident Creating Document: BIGG CAMPOS RESIDENT Referring Physician Jose Miguel Castillo NP Reason for Consultation End stage renal disease on hemodialysis History of Present Illness This is a 53-year-old male with past medical history of end-stage renal disease on hemodialysis, type 2 diabetes mellitus, chronic anemia, hypertension presented to the ED with a chief complaint of intractable abdominal pain since morning prior to this admission. Patient reports symptoms progressively get worse with constipation, unable to have bowel movement for the past [address] abdomen demonstrated large volume stool within the colon, Pulmonary emphysema and Gallbladder sludge/cholelithiasis. According to the patient his last dialysis was on Saturday. Patient denied fever, chills, nausea, vomiting, dysuria, hematuria, positive sick contact or any recent traveling. The patient was seen and examined on the bedside. He is alert ,oriented x3. Complain of abdominal pain and constipation. Past Medical History Constitutional: No: Fever, Chills, Sweats, Weakness, Malaise, Other Eyes: No: Pain, Vision change, Conjunctivae inflammation, Eyelid inflammation, Other, Redness ENT: No: Ear pain, Ear discharge, Nose pain, Nose discharge, Nose congestion, Mouth pain, Mouth swelling, Throat pain, Throat swelling, Other Respiratory: Shortness of breath, improving No: Cough, Dry,Wheezing, Hemoptysis, Pleuritic Pain, Sputum, Wheezing, Other Cardiovascular: No: Chest Pain, Palpitations, Orthopnea, Paroxysmal Noc. Dyspnea, Edema, Lt Headedness, Other Gastrointestinal: Abdominal Pain, No: Nausea, Vomiting, Diarrhea, Constipation, Melena, Hematochezia, Other Musculoskeletal: No: other, neck pain, shoulder pain, arm pain, back pain, hand pain, leg pain, foot pain Neurological:; No: Weakness, Numbness, Incoordination, Change in speech, Confusion, Seizures Past Surgical History Physical examination: General Appearance: Alert, Oriented X3, Cooperative, No acute distress HEENT: Atraumatic, PERRLA, EOMI, Mucous membrane moist/pink Respiratory: Clear to auscultation, Normal air movement Cardiovascular: Regular rate, Normal S1, Normal S2, No murmurs, no chest wall tenderness Abdominal: Normal bowel sounds, Soft, No tenderness, No hepatospenomegaly, No masses Extremities: No clubbing, No cyanosis, No edema, Normal pulses, No tenderness/swelling Skin: No rashes, No breakdown, No significant lesion Neuro: Normal gait, Normal speech, Strength at 5/5 X4 ext, Normal tone, Sensation intact, Cranial nerves 3-12 NL, Reflexes 2+ Psych/Mental Status: Mental status NL, Mood NL Allergies: Coded Allergies: NO KNOWN ALLERGIES (Unverified , 05/25/24) Home Meds Active Scripts Ciprofloxacin-Hydrocortisone (Cipro Hc 0.2-1 %) 1 Yaritza Yaritza, 4 DROP OT BID, #7.5 ML Prov:LONDON VERMA 06/25/24 Acetaminophen (Tylenol Extra Strength Fo) 500 Mg Tab, 1000 MG PO BID, #30 TAB Prov:LONDON VERMA 06/25/24 Current Medications Current Medications Medications (Trade) Dose Ordered Sig/Jaxon Route PRN Reason Start Time Stop Time Status Last Admin Diagnostic Test (Pha) (Accu-Chek Comfort Curve T) 1 strip ACHS 08/10/24 22:00 08/11/24 11:53 Insulin Human Regular (InsuLIN R) ACHS SC 08/10/24 22:00 Dextrose 50 ml UD PRN IV Blood Sugar LESS THAN 60 08/10/24 19:15 Sodium Chloride (Saline Lock Ns) 10 ml Q8HR IV 08/10/24 22:00 08/11/24 05:17 Acetaminophen/ Hydrocodone Bitart ([place] 5/325MG Tab) 1 tab Q4HP PRN PO MODERATE PAIN (4-6 PAIN SCALE) 08/10/24 19:15 Ondansetron HCl (Zofran) 4 mg Q4HP PRN IV NAUSEA / VOMITING 08/10/24 19:15 Docusate Sodium (Colace Capsule) 100 mg BIDPRN PRN PO FOR CONSTIPATION 08/10/24 19:15 Acetaminophen (Tylenol Tablet) 650 mg Q6HP PRN PO PAIN SCALE 1-3 OR TEMP>100.4 08/10/24 19:15 Multivit/Ca Carb/ B Cmplx/FA/Prenat (Nephro-Rianna Tablet) 1 tab DAILY PO 08/11/24 10:00 08/11/24 11:01 Sevelamer HCl (Renagel) 800 mg TIDWM PO 08/11/24 08:00 08/11/24 13:27 Nitroglycerin (Ntrostat Sublingual) 0.4 mg Q5MINP PRN SL FOR CHEST PAIN 08/10/24 20:00 Morphine Sulfate 2 mg Q30M PRN IV FOR CHEST PAIN 08/10/24 20:00 Lactulose 30 ml BID PO 08/10/24 22:00 Vital Signs Vital Signs Date Time Temp Pulse Resp B/P (MAP) Pulse Ox O2 Delivery O2 Flow Rate FiO2 08/11/24 13:00 98.9 86 16 148/71 (96) 99 98.9 08/11/24 08:17 Room Air* 0 21 Labs/Diagnostic Data Labs Test 08/11/24 06:41 08/11/24 05:52 08/10/24 16:35 Range/Units POC Glucose 120 H 70-106 mg/dl White Blood Count 4.3 L 4.4-10.8 10^3/uL Red Blood Count 2.55 L 4.5-5.90 10^6/uL Hemoglobin 7.7 L 13.5-17.5 g/dL Hematocrit 21.7 L 41.0-53.0 % Mean Corpuscular Volume 84.9 80.0-100.0 fL Mean Corpuscular Hemoglobin 30.0 28.0-32.0 pg Mean Corpuscular Hemoglobin Concent 35.3 32.0-36.0 g/dL Red Cell Distribution Width 13.3 11.8-14.3 % Platelet Count 144 140-450 10^3/uL Mean Platelet Volume 7.6 6.9-10.8 fL Neutrophils (%) (Auto) 50.1 37.0-80.0 % Lymphocytes (%) (Auto) 35.4 10.0-50.0 % Monocytes (%) (Auto) 7.6 0.0-12.0 % Eosinophils (%) (Auto) 5.4 0.0-7.0 % Basophils (%) (Auto) 1.5 0.0-2.0 % Neutrophils # (Auto) 2.1 1.6-8.6 10 ^3/uL Lymphocytes # (Auto) 1.5 0.4-5.4 10 ^3/uL Monocytes # (Auto) 0.3 0-1.3 10 ^3/uL Eosinophils # (Auto) 0.2 0-0.8 10 ^3/uL Basophils # (Auto) 0.1 0-0.2 10 ^3/uL Nucleated Red Blood Cells 0.0 % Sodium Level 137 136-145 mmol/L Potassium Level 4.2 3.5-5.1 mmol/L Chloride Level 97 L 98-107 mmol/L Carbon Dioxide Level 28 20-31 mmol/L Anion Gap 12 5-15 Blood Urea Nitrogen 42 H 9-23 mg/dL Creatinine 6.35 H 0.700-1.30 mg/dL Glomerular Filtration Rate Calc 10 >90 mL/min BUN/Creatinine Ratio 6.6 L 10.0-20.0 Serum Glucose 95 74-106 mg/dL Calcium Level 8.9 8.7-10.4 mg/dL Total Bilirubin 0.4 0.2-1.0 mg/dL Aspartate Amino Transferase (AST) 15 13-40 U/L Alanine Aminotransferase (ALT) 28 7-40 U/L Alkaline Phosphatase 103 46-116 U/L Total Protein 7.0 5.7-8.2 g/dL Albumin 4.5 3.2-4.8 g/dL Lipase 36 12-53 U/L Assessment Assessment: # ESRD on hemodialysis # Chronic microcytic anemia likely due to CKD # Intractable abdominal pain likely due to constipation Plan/Recommendation Plan: # Will continue inpatient hemodialysis as per the schedule # Epogen 10,000 SQ 3 x weekly # Management of constipation as per primary # Strict I&O # Renal diet # resume home meds # we will follow the patient. Plan discussed with Dr. Krause Patient seen and examined by myself today on rounds with the medicine resident. I agree with her assessment and plan Plan discussed with: Patient, Other (RN) BIGG CAMPOS RESIDENT Aug 11, 2024 13:55 SAIRA KRAUSE MD Aug 11, 2024 14:56
[2024-08-11 14:12] VITALS: BP 150/80; PULSE 82; RESP 18; TEMP 98.4; O2SAT 100; O2SAT 99
--- NOTE | 2024-08-11 14:16 | DVHPN2 ---
Subjective Patient continues to report having constipation Reviewed: Care Plan, H&P, Labs, Medications Changes from previous H/P or p: No Changes General: Per HPI Eyes: No Pain, No Vision change, No Conjunctivae inflammation, No Eyelid inflammation, No Other, No Redness ENT: No Ear pain, No Ear discharge, No Nose pain, No Nose discharge, No Nose congestion, No Mouth pain, No Mouth swelling, No Throat pain, No Throat swelling, No Other Cardiovascular: No Chest Pain, No Palpitations, No Orthopnea, No Paroxysmal Noc. Dyspnea, No Edema, No Lt Headedness, No Other Respiratory: No Cough, No Dry, No Shortness of breath, No SOB with excertion, No Wheezing, No Hemoptysis, No Pleuritic Pain, No Sputum, No Other Gastrointestinal: No Nausea, No Vomiting; Abdominal Pain; No Diarrhea; C onstipation; No Melena, No Hematochezia, No Other Genitourinary: No Dysuria, No Frequency, No Incontinence, No Hematuria, No Retention; Other (On hemodialysis) Musculoskeletal: No other, No neck pain, No shoulder pain, No arm pain, No back pain, No hand pain, No leg pain, No foot pain Skin: No Rash, No Lesions, No Jaundice, No Bruising, No Other Objective Vitals Vital Signs Date Time Temp Pulse Resp B/P (MAP) Pulse Ox O2 Delivery O2 Flow Rate FiO2 08/11/24 13:00 98.9 86 16 148/71 (96) 99 98.9 08/11/24 08:17 Room Air* 0 21 General Appearance: Alert, Oriented X3, Cooperative, No acute distress HEENT: Atraumatic, PERRLA Cardiovascular: Normal S1, Normal S2 Musculoskeletal: Normal sensory function, Normal motor function Neuro: Sensation intact, Cranial nerves 3-12 NL Skin: Dry, Intact Psych/Mental Status: Mental status NL, Mood NL Medications Current Medications Medications Dose Ordered Sig/Jaxon Route Start Time Stop Time Status Last Admin Dose Admin Diagnostic Test (Pha) 1 strip ACHS 08/10/24 22:00 08/11/24 11:53 1 STRIP Insulin Human Regular ACHS SC 08/10/24 22:00 Dextrose 50 ml UD PRN IV 08/10/24 19:15 Sodium Chloride 10 ml Q8HR IV 08/10/24 22:00 08/11/24 05:17 10 ML Acetaminophen/ Hydrocodone Bitart 1 tab Q4HP PRN PO 08/10/24 19:15 Ondansetron HCl 4 mg Q4HP PRN IV 08/10/24 19:15 Docusate Sodium 100 mg BIDPRN PRN PO 08/10/24 19:15 Acetaminophen 650 mg Q6HP PRN PO 08/10/24 19:15 Multivit/Ca Carb/ B Cmplx/FA/Prenat 1 tab DAILY PO 08/11/24 10:00 08/11/24 11:01 1 TAB Sevelamer HCl 800 mg TIDWM PO 08/11/24 08:00 08/11/24 13:27 800 MG Nitroglycerin 0.4 mg Q5MINP PRN SL 08/10/24 20:00 Morphine Sulfate 2 mg Q30M PRN IV 08/10/24 20:00 Lactulose 30 ml BID PO 08/10/24 22:00 Laboratory Results Laboratory Tests 08/11/24 05:52 Chemistry Test 08/10/24 16:35 08/11/24 05:52 Calcium Level 8.2 mg/dL (8.7-10.4) L 8.9 mg/dL (8.7-10.4) Albumin 4.5 g/dL (3.2-4.8) Total Protein 7.0 g/dL (5.7-8.2) Lipid panel Test 08/10/24 16:35 Lipase 36 U/L (12-53) LFT Test 08/11/24 05:52 Alanine Aminotransferase (ALT) 28 U/L (7-40) Alkaline Phosphatase 103 U/L (46-116) Aspartate Amino Transferase (AST) 15 U/L (13-40) Total Bilirubin 0.4 mg/dL (0.2-1.0) Labs and/or images reviewed: Labs reviewed by me, Image(s) reviewed by me Assessment/Plan Assessment/Plan Impression: -abdominal pain secondary to constipation -ESRD with HD -accelerated hypertension -anemia of chronic disease -diabetes mellitus Plan: -stool softeners, laxatives -nephrology consultation for hemodialysis -regular insulin sliding scale -reassess for discharge in a.m. after HD and patient has bowel movement Total time spent with patient discussing and formulating plan of care: 35 minutes. This medical document was created using an electronic medical record system with Dragon computerized dictation system. Although this document has been carefully reviewed, there may still be some phonetic and typographical errors. These areas are purely typographical due to imperfections of the software programs, and do not reflect any compromise in the patient's medical care. Plan discussed with: Patient, Other (RN) Date of Service: Aug 11, 2024 Billing Provider: CODY MORRISON NP Common Visit Codes: [id number] INP/OBS CARE(HIGH) CODY MORRISON NP Aug 11, 2024 14:16
[2024-08-11 17:37] VITALS: BP 141/82; PULSE 84; RESP 18; TEMP 98.2; O2SAT 99
[2024-08-11 20:00] VITALS: PULSE 75; PULSE 80; RESP 16; O2SAT 99
[2024-08-11 21:00] VITALS: BP 136/70; PULSE 80; RESP 16; TEMP 98; O2SAT 99
[2024-08-12 00:59] VITALS: BP 140/69; PULSE 83; RESP 16; TEMP 98.6; O2SAT 98
[2024-08-12 05:00] VITALS: BP 142/68; PULSE 79; RESP 18; TEMP 98; O2SAT 99
[2024-08-12] MEDS ORDERED: SODIUM CHL 0.9% 1000 ML BAG XX ONE (07:00)
[2024-08-12 08:00] VITALS: PULSE 80; PULSE 82; RESP 14; O2SAT 99
[2024-08-12 09:00] VITALS: BP 141/71; PULSE 82; RESP 14; TEMP 98.1; O2SAT 99
[2024-08-12 10:17] LABS: Chloride 101 mmol/L (98-107); Potassium 4.3 mmol/L (3.5-5.1); Sodium 136 mmol/L (136-145)
[2024-08-12 10:18] LABS: Anion Gap 8 (5-15); Calcium 8.9 mg/dL (8.7-10.4); Carbon Dioxide 27 mmol/L (20-31)
[2024-08-12 10:23] LABS: BUN/Creatinine Ratio 7.3 (10.0-20.0)
[2024-08-12 10:24] LABS: Blood Urea Nitrogen 62 mg/dL (9-23); Glucose 142 mg/dL (74-106)
--- NOTE | 2024-08-12 12:44 | DVHPN2 ---
Progress Note Date Seen: Aug 12, 2024 Resident Creating Document: BIGG CAMPOS RESIDENT Medical Necessity Reason Pt with a Central, PICC or Fol: No Subjective Review of Systems This is a 53-year-old male with past medical history of end-stage renal disease on hemodialysis, type 2 diabetes mellitus, chronic anemia, hypertension presented to the ED with a chief complaint of intractable abdominal pain since morning prior to this admission. Patient reports symptoms progressively get worse with constipation, unable to have bowel movement for the past [address] abdomen demonstrated large volume stool within the colon, Pulmonary emphysema and Gallbladder sludge/cholelithiasis. According to the patient his last dialysis was on Saturday. Patient denied fever, chills, nausea, vomiting, dysuria, hematuria, positive sick contact or any recent traveling. The patient was seen and examined on the bedside. He is alert ,oriented x3. Mentioned bowel movement yesterday and today morning and relief of abdominal pain. Scheduled for hemodialysis today. Other Systems: Patient seen and examined by myself today on rounds with the medicine resident, I agree with her assessment and plan Patient examined hemodialysis, blood pressure stable Objective vital signs Vital Sign Date Time Temp Pulse Resp B/P (MAP) Pulse Ox O2 Delivery O2 Flow Rate FiO2 08/12/24 09:00 98.1 82 14 141/71 (94) 99 98.1 08/12/24 08:00 Room Air* 0 21 Total Intake and Output 08/11/24 08/11/24 08/12/24 15:00 23:00 07:00 Intake Total 360 ml 200 ml Balance 360 ml 200 ml medications Current Medications Medications Dose Ordered Sig/Jaxon Route Start Time Stop Time Status Last Admin Dose Admin Diagnostic Test (Pha) 1 strip ACHS 08/10/24 22:00 08/12/24 11:30 1 STRIP Insulin Human Regular ACHS SC 08/10/24 22:00 Dextrose 50 ml UD PRN IV 08/10/24 19:15 Sodium Chloride 10 ml Q8HR IV 08/10/24 22:00 08/12/24 06:18 10 ML Acetaminophen/ Hydrocodone Bitart 1 tab Q4HP PRN PO 08/10/24 19:15 Ondansetron HCl 4 mg Q4HP PRN IV 08/10/24 19:15 Docusate Sodium 100 mg BIDPRN PRN PO 08/10/24 19:15 Acetaminophen 650 mg Q6HP PRN PO 08/10/24 19:15 Multivit/Ca Carb/ B Cmplx/FA/Prenat 1 tab DAILY PO 08/11/24 10:00 08/12/24 12:38 1 TAB Sevelamer HCl 800 mg TIDWM PO 08/11/24 08:00 08/12/24 12:38 800 MG Nitroglycerin 0.4 mg Q5MINP PRN SL 08/10/24 20:00 Morphine Sulfate 2 mg Q30M PRN IV 08/10/24 20:00 Lactulose 30 ml BID PO 08/10/24 22:00 08/11/24 15:37 30 ML Examination Physical examination: General Appearance: Alert, Oriented X3, Cooperative, No acute distress HEENT: Atraumatic, PERRLA, EOMI, Mucous membrane moist/pink Respiratory: Clear to auscultation, Normal air movement Cardiovascular: Regular rate, Normal S1, Normal S2, No murmurs, no chest wall tenderness Abdominal: Normal bowel sounds, Soft, No tenderness, No hepatospenomegaly, No masses Extremities: AV fistula on the lt arm, No clubbing, No cyanosis, No edema, Normal pulses, No tenderness/swelling Skin: No rashes, No breakdown, No significant lesion Neuro: Normal gait, Normal speech, Strength at 5/5 X4 ext, Normal tone, Sensation intact, Cranial nerves 3-12 NL, Reflexes 2+ Psych/Mental Status: Mental status NL, Mood NL laboratory and microbiology Laboratory Tests 08/12/24 09:50 08/11/24 05:52 Test 08/12/24 09:50 Range/Units Serum Glucose 142 H 74-106 mg/dL Labs and/or images reviewed: Labs reviewed by me, Image(s) reviewed by me Problem List/Assessment/Plan Problem List/Assessment/Plan Assessment: # ESRD on hemodialysis # Chronic microcytic anemia likely due to CKD # Intractable abdominal pain likely due to constipation Plan/Recommendation # continuous UF 2 L as tolerated # Epogen 10,000 SQ 3 x weekly # Management of constipation as per primary # Strict I&O # Renal diet # Resume home meds # we will follow the patient. Plan discussed with Dr. Castro Plan discussed with: Patient, Other (RN) BIGG CAMPOS RESIDENT Aug 12, 2024 12:44 SAIRA CASTRO MD Aug 13, 2024 12:50
[2024-08-12 13:00] VITALS: BP 131/61; PULSE 77; RESP 16; TEMP 97.8; O2SAT 98
--- NOTE | 2024-08-12 13:54 | DVHDS2 ---
Discharge Summary Date of Admission Aug 10, 2024 at 19:54 Date of Discharge: Aug 12, 2024 Admitting Diagnosis Intractable abdominal pain Labs/Diagnostic Data: Laboratory Results Test 08/12/24 11:59 08/12/24 09:50 08/11/24 05:52 08/10/24 16:35 POC Glucose 110 mg/dl (70-106) Sodium Level 136 mmol/L (136-145) Potassium Level 4.3 mmol/L (3.5-5.1) Chloride Level 101 mmol/L (98-107) Carbon Dioxide Level 27 mmol/L (20-31) Anion Gap 8 (5-15) Blood Urea Nitrogen 62 mg/dL (9-23) Creatinine 8.44 mg/dL (0.700-1.30) Glomerular Filtration Rate Calc 7 mL/min (>90) BUN/Creatinine Ratio 7.3 (10.0-20.0) Serum Glucose 142 mg/dL (74-106) Calcium Level 8.9 mg/dL (8.7-10.4) White Blood Count 4.3 10^3/uL (4.4-10.8) Red Blood Count 2.55 10^6/uL (4.5-5.90) Hemoglobin 7.7 g/dL (13.5-17.5) Hematocrit 21.7 % (41.0-53.0) Mean Corpuscular Volume 84.9 fL (80.0-100.0) Mean Corpuscular Hemoglobin 30.0 pg (28.0-32.0) Mean Corpuscular Hemoglobin Concent 35.3 g/dL (32.0-36.0) Red Cell Distribution Width 13.3 % (11.8-14.3) Platelet Count 144 10^3/uL (140-450) Mean Platelet Volume 7.6 fL (6.9-10.8) Neutrophils (%) (Auto) 50.1 % (37.0-80.0) Lymphocytes (%) (Auto) 35.4 % (10.0-50.0) Monocytes (%) (Auto) 7.6 % (0.0-12.0) Eosinophils (%) (Auto) 5.4 % (0.0-7.0) Basophils (%) (Auto) 1.5 % (0.0-2.0) Neutrophils # (Auto) 2.1 10 ^3/uL (1.6-8.6) Lymphocytes # (Auto) 1.5 10 ^3/uL (0.4-5.4) Monocytes # (Auto) 0.3 10 ^3/uL (0-1.3) Eosinophils # (Auto) 0.2 10 ^3/uL (0-0.8) Basophils # (Auto) 0.1 10 ^3/uL (0-0.2) Nucleated Red Blood Cells 0.0 % Total Bilirubin 0.4 mg/dL (0.2-1.0) Aspartate Amino Transferase (AST) 15 U/L (13-40) Alanine Aminotransferase (ALT) 28 U/L (7-40) Alkaline Phosphatase 103 U/L (46-116) Total Protein 7.0 g/dL (5.7-8.2) Albumin 4.5 g/dL (3.2-4.8) Lipase 36 U/L (12-53) Other Laboratory Tests 08/12/24 09:50 08/11/24 05:52 Brief Hx & Hospital Course: History of Present Illness The patient is a 53-year-old male with past medical history of anemia, DM, ESRD on hemodialysis --, and hypertension who presented to [facility] ED with complaint of intractable abdominal pain. Patient reports symptoms progressively get worse with constipation, unable to have bowel movement for the past 10 days. Patient was seen and evaluated in the ED, laboratory data shows WBC 3.6, hemoglobin 7.8, hematocrit 22.2, platelets 146, sodium 137, potassium 3.9, BUN 34, creatinine 5.11, glucose 101, calcium 8.2, lipase 36, blood pressure 137/75, heart rate 86, temperature 97.4 F, O2 saturation 99% on room air. Abdomen/pelvis CT revealing large volume stool within the colon, pulmonary emphysema, gallbladder sludge/cholelithiasis. Please see medication orders section in the computer. On my assessment, patient denied chest pain, no headache, no dizziness, no shortness of breath, no diaphoresis, no nausea, no vomiting, no fever, no chills. Patient was admitted for further evaluation and medical management. Course of hospitalization: Patient was treated with bowel regimen, with positive bowel movement. Patient states that his abdominal pain has improved. Patient received hemodialysis to be discharged home today. He is instructed to follow up with his PCP in 1-2 weeks. Patient will continue all previous home medications and we will be provided prescription for lactulose 15 mL b.i.d. as needed for persistent constipation. Physical examination General: Alert and Oriented x3. No acute distress. Well-nourished. Eyes: EOMI. Anicteric. HENT: Moist mucous membranes. Lungs: Clear to auscultation bilaterally. No accessory muscle use. Cardiovascular: Regular rate and rhythm. No murmur. No JVD. Abdomen: Soft, non-tender and non-distended. No palpable masses. Extremities: No edema. Non-tender. Skin: No rashes or lesions. Warm. Neurologic: No focal neurological deficits. CN II-XII grossly intact, but not individually tested. Psychiatric: Cooperative. Appropriate mood and affect. Total time spent with patient discussing and formulating plan of care: 35 minutes. This medical document was created using an electronic medical record system with VNG dictation system. Although this document has been carefully reviewed, there may still be some phonetic and typographical errors. These areas are purely typographical due to imperfections of the software programs, and do not reflect any compromise in the patient's medical care. Consults/Reason for consult Nephrology: Hemodialysis Condition at Discharge: Fair Final Diagnosis/Problems List Abdominal pain secondary to constipation Secondary diagnosis: -ESRD with HD -accelerated hypertension -anemia of chronic disease -diabetes mellitus Discharge Disposition: Home Discharge Instruct/Medications Diet: Consistent carbohydrate, Renal Activity: No Restrictions, As Tolerated Follow Up/Referral: Follow up with PCP in 1-2 weeks Medications: Lactulose 15 mL b.i.d. as needed for constipation x2 days Continue all previous home medications 36 Discharge Statement: "Patient was advised to return to the ER or call 911 if any headaches, dizziness, shortness of breath, chest pain, abdominal pain, bleeding, fevers, or worsening of medical condition. Patient was counseled about treatment plan, medications, possible side effects, patientverbalized understanding. All questions were answered to the best of my ability. This discharge took greater then 30 minutes in planning, reviewing documentation, counseling the patient, and discussing with other team members." ASSESSMENT ASSESSMENT Assessment Abdominal pain secondary to constipation Date of Service: Aug 12, 2024 Billing Provider: CODY MORRISON NP Common Visit Codes: 22856-UKA/OBS DISCH DAY >30min CODY MORRISON DELIVERER OUTSIDE Aug 12, 2024 13:54
[2024-08-12 14:55] VITALS: TEMP 36.6
[2024-08-12] MEDS ORDERED: EPOETIN ALFA-EPBX 10,000 UNIT/1ML VIAL SC ONE (21:00)
--- NOTE | 2024-08-13 07:04 | ECG ---
[facility] Test Date: 2024-08-10 Test Time: 16:07:59 Pat Name: MISSY COX Department: ER Room: 0237T A Gender: M Reliability Technician: ER : 1970 Requested By: SESAR ROSS Order Number: [id number] Reading MD: Isaiah Nix Measurements Intervals Zwingle Rate: 86 P: 47 MA: 160 QRS: 6 QRSD: 92 T: 4 QT: 388 QTc: 464 Interpretive Statements Sinus rhythm Left ventricular hypertrophy Electronically Signed On 08-13-2024 9:33:57 PDT by Isaiah Nix Please click the below link to view image of tracing.
== END 2024-08-12 16:20 | disposition home or self-care (01) | DRG 247 ==
LOC: ER 16:00 → EDUNIT# 16:00 → EDBD 16:00 → OVERFLOW 19:54 → TELE-EAST 08-11 14:21
PROVIDERS: ADMIT Nurse Practitioner Acute Care; ATTEND Nurse Practitioner Acute Care
PROC: 5A1D70Z Performance of Urinary Filtration, Intermittent, Less than 6 Hours Per Day (ICD-10-PCS; principal; 2024-08-12)
DX: K56.41 Fecal impaction (principal); I12.0 Hypertensive chronic kidney disease with stage 5 chronic kidney disease or end stage renal disease; E11.22 Type 2 diabetes mellitus with diabetic chronic kidney disease; N18.6 End stage renal disease; D63.1 Anemia in chronic kidney disease; D50.9 Iron deficiency anemia, unspecified; I25.10 Atherosclerotic heart disease of native coronary artery without angina pectoris; K82.8 Other specified diseases of gallbladder; Z79.2 Long term (current) use of antibiotics; Z79.899 Other long term (current) drug therapy; Z99.2 Dependence on renal dialysis
CPT/HCPCS: 36415; 74176; 76705; 80048; 80053; 82962; 83690; 85025; 86850; 86900; 86901; 87081; 87340; 90935; 93005; G0378; J1815

== ENCOUNTER 2024-08-16 12:29 | Inpatient (IN) | payer MEDICAID ==
[~2024-08-16] VITALS: Ht 170.2 cm; Wt 55.5 kg
[2024-08-16 12:50] VITALS: PULSE 82; RESP 14; O2SAT 100
--- NOTE | 2024-08-16 12:54 | ED.PDOC ---
GI ASSESSMENT HPI Comments 53 year old male presents to the ED via EMS with a chief complaint of diarrhea onset today (08/16/24). Per EMS, patient was discharged from [facility] on 08/12/24, was hospitalized due to constipation. Patient woke up this morning experiencing uncontrollable diarrhea, had 3 bowel movements in route to ED. Has dialysis Saturday, Saturday, Saturday. PMHx ESRD, anemia, DM, HTN. Denies chest pain, shortness of breath, nausea, vomiting, dizziness, fevers. No other symptoms or modifying factors present at this time. Chief Complaint: Diarrhea Time Seen by MD: 12:45 Primary Care Provider: ambrose Hankins Notes: Medications, Allergies Allergies: Coded Allergies: NO KNOWN ALLERGIES (Unverified , 05/25/24) Home Meds Active Scripts Ciprofloxacin-Hydrocortisone (Cipro Hc 0.2-1 %) 1 Yaritza Yaritza, 4 DROP OT BID, #7.5 ML Prov:LONODN VERMA 06/25/24 Acetaminophen (Tylenol Extra Strength Fo) 500 Mg Tab, 1000 MG PO BID, #30 TAB Prov:LONDON VERMA 06/25/24 Information Source: Patient, Emergency Med Personnel Mode of Arrival: EMS Timing: Hours Duration: Since onset Prehospital treatment: None Stool: Loose Severity: Moderate Recent: None Recent Hx of: None Associated sign and symptoms: Diarrhea Past Medical History PAST MEDICAL HISTORY: Anemia, DM, ESRD, HTN Surgical History: Denies all surgeries Family History Family History: Reviewed,noncontributory to illness Social History Smoker: Non-Smoker Alcohol: Denies ETOH Use Drugs: Denies Drug Use Lives In: Home Constitutional: denies: chills, diaphoresis, fatigue, fever, malaise, sweats, weakness, others EENTM: denies: blurred vision, double vision, ear bleeding, ear discharge, ear drainage, ear pain, ear ringing, eye pain, eye redness, hearing loss, mouth pain, mouth swelling, nasal discharge, nose bleeding, nose congestion, nose pain, photophobia, tearing, throat pain, throat swelling, voice changes, others Respiratory: denies: cough, hemoptysis, orthopnea, SOB at rest, shortness of breath, SOB with excertion, stridor, wheezing, others Cardiovascular: denies: chest pain, dizzy spells, diaphoresis, Dyspnea on exertion, edema, irregular heart beat, left arm pain, lightheadedness, palpitations, PND, syncope, others Gastrointestinal: reports: diarrhea; denies: abdomen distended, abdominal pain, blood streaked bowels, constipated, dysphagia, difficulty swallowing, hematemesis, melena, nausea, poor appetite, poor fluid intake, rectal bleeding, rectal pain, vomiting, others Genitourinary: denies: burning, dysuria, flank pain, frequency, hematuria, incontinence, penile discharge, penile sore, pain, testicle pain, testicle swelling, urgency, others Neurological: denies: dizziness, fainting, headache, left sided numbness, left sided weakness, numbness, paresthesia, pre-existing deficit, right sided numbness, right sided weakness, seizure, speech problems, tingling, tremors, weakness, others Musculoskeletal: denies: back pain, gout, joint pain, joint swelling, muscle pain, muscle stiffness, neck pain, others Integumetry: denies: bruises, change in color, change in hair/nails, dryness, laceration, lesions, lumps, rash, wounds, others Allergic/Immunocompromised: denies: Difficulty Healing, Frequent Infections, Hives, Itching, others Hematologic/Lymphatic: denies: anemia, blood clots, easy bleeding, easy bruising, swollen glands, others Endocrine: denies: excessive hunger, excessive sweating, excessive thirst, excessive urination, flushing, intolerance to cold, intolerance to heat, unexplained weight gain, unexplained weight loss, others Psychiatric: denies: anxiety, bipolar disorder, depression, hopeless, panic disorder, schizophrenia, sleepless, suicidal, others All Other Systems: Reviewed and Negative Physical Exam General Appearance: Normal HEENT: Normal ENT Inspection, Pharynx Normal, TMs Normal Neck: Full Range of Motion, Non-Tender, Normal, Normal Inspection Respiratory: Chest Non-Tender, Lungs Clear, No Accessory Muscle Use, No Respiratory Distress, Normal Breath Sounds Cardiovascular: No Edema, No JVD, No Murmur, No Gallop, Normal Peripheral Pulses, Regular Rate/Rhythm Breast Exam: Deferred Gastrointestinal: No Organomegaly, Non Tender, No Pulsatile Mass, Normal Bowel Sounds, Soft Genitalia: Deferred Pelvic: Deferred Rectal: Deferred Extremities: No calf tenderness, Normal capillary refill, Normal inspection, Normal range of motion, Non-tender, No pedal edema Musculoskeletal : Apperance: Normal Neurologic: Alert, stream control officer II-XII nml as Tested, No Motor Deficits, Normal Affect, Normal Mood, No Sensory Deficits Cerebellar Function: Normal Reflexes: Normal Skin: Dry, Normal Color, Warm Lymphatic: No Adenopathy Was a procedure done? Was a procedure done?: No GI differential Dx Differential Diagnosis: Gastritis/PUD, Gastroenteritis, Dehydration, Electrolyte Imbalance, Viral, Hypovolemia, Anemia X-Ray, Labs, Meds, VS Vital Signs Date Time Temp Pulse Resp B/P (MAP) Pulse Ox O2 Delivery O2 Flow Rate FiO2 08/16/24 14:43 81 08/16/24 14:00 81 11 146/67 (93) 96 08/16/24 12:35 98.4 81 18 152/73 (99) 97 98.4 Lab Test 08/16/24 13:30 08/16/24 12:52 Range/Units White Blood Count 5.3 4.4-10.8 10^3/uL Red Blood Count 2.30 L 4.5-5.90 10^6/uL Hemoglobin 6.9 *L 13.5-17.5 g/dL Hematocrit 19.4 #L 41.0-53.0 % Mean Corpuscular Volume 84.5 80.0-100.0 fL Mean Corpuscular Hemoglobin 30.0 28.0-32.0 pg Mean Corpuscular Hemoglobin Concent 35.5 32.0-36.0 g/dL Red Cell Distribution Width 13.5 11.8-14.3 % Platelet Count 142 140-450 10^3/uL Mean Platelet Volume 7.6 6.9-10.8 fL Neutrophils (%) (Auto) 67.8 37.0-80.0 % Lymphocytes (%) (Auto) 19.6 10.0-50.0 % Monocytes (%) (Auto) 7.4 0.0-12.0 % Eosinophils (%) (Auto) 4.3 0.0-7.0 % Basophils (%) (Auto) 0.9 0.0-2.0 % Neutrophils # (Auto) 3.6 1.6-8.6 10 ^3/uL Lymphocytes # (Auto) 1.0 0.4-5.4 10 ^3/uL Monocytes # (Auto) 0.4 0-1.3 10 ^3/uL Eosinophils # (Auto) 0.2 0-0.8 10 ^3/uL Basophils # (Auto) 0 0-0.2 10 ^3/uL Nucleated Red Blood Cells 0.1 % Sodium Level 138 136-145 mmol/L Potassium Level 4.2 3.5-5.1 mmol/L Chloride Level 98 98-107 mmol/L Carbon Dioxide Level 27 20-31 mmol/L Anion Gap 13 5-15 Blood Urea Nitrogen 45 H 9-23 mg/dL Creatinine 8.73 H 0.700-1.30 mg/dL Glomerular Filtration Rate Calc 7 >90 mL/min BUN/Creatinine Ratio 5.2 L 10.0-20.0 Serum Glucose 138 H 74-106 mg/dL Lactic Acid Level 0.8 0.4-2.0 mmol/L Calcium Level 9.3 8.7-10.4 mg/dL Troponin I High Sensitivity 11 </=54 ng/L Stool Occult Blood Negative Negative Stool Occult Blood Sample #3 Negative Stool for White Cells Rare Microbiology Date/Time Source Procedure Growth Status 08/16/24 12:52 Stool Received Current Medications Medications (Trade) Dose Ordered Sig/Jaxon Route Start Time Stop Time Status Last Admin Sodium Chloride 1,000 ml @ 1,000 mls/hr Q1H ONCE IV 08/16/24 12:45 08/16/24 13:44 DC 08/16/24 14:42 Ondansetron HCl (Zofran) 4 mg ONCE ONCE IV 08/16/24 12:45 08/16/24 12:46 DC 08/16/24 14:42 Loperamide HCl (Imodium Capsule) 2 mg ONCE ONCE PO 08/16/24 12:45 08/16/24 12:46 DC 08/16/24 14:15 Time of 1ST Reevaluation: 13:15 Reevaluation 1ST: Unchanged Patient Education/Counseling: Diagnosis, Treatment, Prognosis Family Education/Counseling: No Family Present Sepsis Sepsis Reasesment Focused Exam Orders: Laboratory Tests 08/16/24 13:30: Lactic Acid Level 0.8 Departure 1 Departure Time of Disposition: 14:51 (Patient with intractable diarrhea and found to have symptomatic anemia. We will transfuse patient admit patient for further workup and expert consultation) Impression: Primary Impression: Symptomatic anemia Additional Impressions: Frequent diarrhea Generalized weakness ESRD (end stage renal disease) on dialysis Disposition: ADMITTED INPATIENT Admit to: Med Surg Condition: Serious Critical Care Note Critical Care Time?: Yes Critical care comment: Symptomatic anemia Authorized and Performed by: Whit Yanes MD Total critical care time: Approximately 42 minutes Due to a high probability of clinically significant, life threatening deterioration, the patient required my highest level of preparedness to intervene emergently and I personally spent this critical care time directly and personally managing the patient. This critical care time included obtaining a history; examining the patient; pulse oximetry; ordering and review of studies; arranging urgent treatment with development of a management plan; evaluation of patient's response to treatment; frequent reassessment; and, discussions with other providers. This critical care time was performed to assess and manage the high probability of imminent, life-threatening deterioration that could result in multi-organ failure. It was exclusive of separately billable procedures and treating other patients and teaching time. Please see my other sections and the rest of the note for further information on patient assessment and treatment. Stability Stability form required: No I personally scribed for WHIT YANES MD ([email or web address]) on 08/16/24 at 12:54. Electronically submitted by Jigna Butcher ([email or web address]). WHIT YANES MD Aug 16, 2024 12:54
[2024-08-16 14:01] LABS: Basophils # (auto) 0 10 ^3/uL (0-0.2); Eosinophils # (auto) 0.2 10 ^3/uL (0-0.8); Monocytes # (auto) 0.4 10 ^3/uL (0-1.3); Red Cell Distribution Width 13.5 % (11.8-14.3)
[2024-08-16 14:06] LABS: Basophils % (auto) 0.9 % (0.0-2.0); Eosinophils % (auto) 4.3 % (0.0-7.0); Hematocrit 19.4 % (41.0-53.0); Lymphocytes % (auto) 19.6 % (10.0-50.0); Mean Corpuscular Hgb Conc. 35.5 g/dL (32.0-36.0); Mean Corpuscular Volume 84.5 fL (80.0-100.0); Monocytes % (auto) 7.4 % (0.0-12.0); Neutrophils # (auto) 3.6 10 ^3/uL (1.6-8.6); Neutrophils % (auto) 67.8 % (37.0-80.0); Nucleated Red Blood Cells % 0.1 %; Platelet Count (auto) 142 10^3/uL (140-450); White Blood Cell 5.3 10^3/uL (4.4-10.8)
[2024-08-16 14:10] LABS: Potassium 4.2 mmol/L (3.5-5.1); Sodium 138 mmol/L (136-145)
[2024-08-16 14:11] LABS: Anion Gap 13 (5-15); Calcium 9.3 mg/dL (8.7-10.4); Carbon Dioxide 27 mmol/L (20-31)
[2024-08-16] MEDS: LOPERAMIDE HCL 2 MG CAP/TAB PO ONE (14:15)
[2024-08-16 14:16] LABS: BUN/Creatinine Ratio 5.2 (10.0-20.0)
[2024-08-16 14:20] LABS: Blood Urea Nitrogen 45 mg/dL (9-23); Chloride 98 mmol/L (98-107); Glucose 138 mg/dL (74-106)
[2024-08-16 14:23] LABS: Hemoglobin 6.9 g/dL (13.5-17.5)
[2024-08-16] MEDS: SODIUM CHLORIDE 0.9% 1,000 ML IV ONE (14:42)
[2024-08-16] MEDS: ONDANSETRON HCL 4 MG/2 ML VIAL IV ONE (14:42)
[2024-08-16 18:01] VITALS: BP 173/74; PULSE 82; RESP 16; TEMP 98.2
[2024-08-16 18:25] VITALS: BP 145/69; PULSE 84; RESP 12; TEMP 98.6
[2024-08-16] MEDS ORDERED: LOPERAMIDE HCL 2 MG CAP/TAB PO PRN (20:15)
[2024-08-16] MEDS ORDERED: ONDANSETRON HCL 4 MG/2 ML VIAL IV PRN (20:15)
[2024-08-16] MEDS ORDERED: DEXTROSE (50%) 50ML SYRG IV PRN (20:15)
[2024-08-16] MEDS ORDERED: ACETAMINOPHEN 325 MG TAB PO PRN (20:15)
[2024-08-16] MEDS ORDERED: HYDROcodone-ACET 5/325MG TAB PO PRN (20:15)
[2024-08-16 21:44] VITALS: BP 157/73; PULSE 84; RESP 16; TEMP 98.7
[2024-08-16] MEDS: ACCU-CHEK COMFORT CURVE STRIP VI SCH (22:00)
[2024-08-16] MEDS: InsuLIN REG 1unit/0.01ml Soln (100units/ml) SC SCH (22:00)
--- NOTE | 2024-08-16 22:18 | DVHHP2 ---
History of Present Illness Reason for Visit: Diarrhea History of Present Illness 53-year-old male presents for evaluation of diarrhea. Patient reports a one day history of having approximately 10 episodes of watery diarrhea. He also reports having some nausea. No abdominal pain no fever or chills. Denies melena. She reports having his last blood transfusion two years ago. Past Medical History Diabetes mellitus, hypertension, end-stage renal disease Past Surgical History Dialysis access Family History Noncontributory Smoke: No ALCOHOL: none Drugs: None Lives: with Family Review of Systems Review of Systems Review of systems are currently negative otherwise addressed in HPI. Allergies: Coded Allergies: NO KNOWN ALLERGIES (Unverified , 05/25/24) Medications Current Medications Medications Dose Ordered Sig/Jaxon Route Start Time Stop Time Status Last Admin Dose Admin Loperamide HCl 2 mg PRN PRN PO 08/16/24 20:15 Amlodipine Besylate 10 mg DAILY PO 08/17/24 10:00 Aspirin 81 mg DAILY PO 08/17/24 10:00 Carvedilol 12.5 mg Q12HR PO 08/16/24 22:00 Sacubitril/ Valsartan 1 tab BID PO 08/16/24 22:00 Atorvastatin Calcium 40 mg HS PO 08/16/24 22:00 Diagnostic Test (Pha) 1 strip ACHS 08/16/24 22:00 Insulin Human Regular ACHS SC 08/16/24 22:00 Dextrose 50 ml UD PRN IV 08/16/24 20:15 Acetaminophen/ Hydrocodone Bitart 1 tab Q4HP PRN PO 08/16/24 20:15 Ondansetron HCl 4 mg Q4HP PRN IV 08/16/24 20:15 Acetaminophen 650 mg Q6HP PRN PO 08/16/24 20:15 Exam Vital Signs Vital Signs Date Time Temp Pulse Resp B/P (MAP) Pulse Ox O2 Delivery O2 Flow Rate FiO2 08/16/24 21:44 98.7 84 16 157/73 98.7 08/16/24 20:00 100 08/16/24 12:50 Room Air* 0 21 Exam Gen: 53-year-old male in mild distress Skin: Warm, dry, normal color and texture, no rash. HEENT: Normocephalic atraumatic, mucous membranes moist and pink. Neck: Cervical and supraclavicular nodes normal without enlargement, trachea is midline, thyroid gland is normal without masses. Pulmonary: Clear to auscultation and percussion bilaterally. Cardiac: Regular rate and rhythm. No murmur Abdomen: Soft, nontender, nondistended, bowel sounds present all 4 quadrants, no guarding, no rigidity, no organomegaly. Extremities: No cyanosis, clubbing, no edema Neuro: Cranial nerves II through XII grossly intact, normal affect and speech, no focal motor deficits. Labs/Xrays ORDERING PHYSICIAN: SESAR ROSS MD PROCEDURE(s): ABPL - CT AB PEL WO CON-NO ORAL OR IV REASON: diffusepain ORDER NUMBER(s): [id number], ACCESSION NUMBER(s): [id number] Indication: diffusepain Technique: CT axial images of the abdomen and pelvis are obtained without contrast. Coronal and sagittal reformats were obtained. Radiation Dose Information: CTDI volume is 5.29 mGy. Dose-length product is 307.84 mGy*cm Comparison: None FINDINGS: There is limited interpretation of the abdomen and pelvis without administration of intravenous contrast. Lung bases demonstrate pulmonary emphysematous changes. Bilateral atelectasis. Adrenal glands, spleen, pancreas unremarkable in shape. Gallbladder sludge / cholelithiasis. Liver is unremarkable in shape. Bilateral renal cysts. No hydronephrosis. Stomach is moderately distended. Small bowel loops are normal in caliber. Large volume stool within the colon. No secondary signs for appendicitis. Abdominal aortic atherosclerotic disease. Bladder contracted. No free pelvic fluid. No inguinal lymphadenopathy. Thhd-tn-trlagvaf thoracolumbar degenerative disc disease. Soft tissue edema / anasarca. IMPRESSION: 1. Large volume stool within the colon. 2. Pulmonary emphysema 3. Gallbladder sludge/cholelithiasis Labs Test 08/16/24 13:30 08/16/24 12:52 Range/Units White Blood Count 5.3 4.4-10.8 10^3/uL Red Blood Count 2.30 L 4.5-5.90 10^6/uL Hemoglobin 6.9 *L 13.5-17.5 g/dL Hematocrit 19.4 #L 41.0-53.0 % Mean Corpuscular Volume 84.5 80.0-100.0 fL Mean Corpuscular Hemoglobin 30.0 28.0-32.0 pg Mean Corpuscular Hemoglobin Concent 35.5 32.0-36.0 g/dL Red Cell Distribution Width 13.5 11.8-14.3 % Platelet Count 142 140-450 10^3/uL Mean Platelet Volume 7.6 6.9-10.8 fL Neutrophils (%) (Auto) 67.8 37.0-80.0 % Lymphocytes (%) (Auto) 19.6 10.0-50.0 % Monocytes (%) (Auto) 7.4 0.0-12.0 % Eosinophils (%) (Auto) 4.3 0.0-7.0 % Basophils (%) (Auto) 0.9 0.0-2.0 % Neutrophils # (Auto) 3.6 1.6-8.6 10 ^3/uL Lymphocytes # (Auto) 1.0 0.4-5.4 10 ^3/uL Monocytes # (Auto) 0.4 0-1.3 10 ^3/uL Eosinophils # (Auto) 0.2 0-0.8 10 ^3/uL Basophils # (Auto) 0 0-0.2 10 ^3/uL Nucleated Red Blood Cells 0.1 % Sodium Level 138 136-145 mmol/L Potassium Level 4.2 3.5-5.1 mmol/L Chloride Level 98 98-107 mmol/L Carbon Dioxide Level 27 20-31 mmol/L Anion Gap 13 5-15 Blood Urea Nitrogen 45 H 9-23 mg/dL Creatinine 8.73 H 0.700-1.30 mg/dL Glomerular Filtration Rate Calc 7 >90 mL/min BUN/Creatinine Ratio 5.2 L 10.0-20.0 Serum Glucose 138 H 74-106 mg/dL Lactic Acid Level 0.8 0.4-2.0 mmol/L Calcium Level 9.3 8.7-10.4 mg/dL Troponin I High Sensitivity 11 </=54 ng/L Lipase 33 12-53 U/L Stool Occult Blood Negative Negative Stool Occult Blood Sample #3 Negative Stool for White Cells Rare Microbiology Date/Time Source Procedure Growth Status 08/16/24 12:52 Stool Stool Culture - Preliminary Resulted 08/16/24 12:52 Stool Shiga Toxin I & II - Final Resulted Assessment/Plan Assessment/Plan Assessment Symptomatic anemia Diarrhea End-stage renal disease, dialysis dependent Hypertension Plan Admit the patient to Med surge to the hospitalist Jose R Stool bacterial culture pending 2 units of packed red cells Nephrology consultation Continue treatment per orders. Plan discussed with: Patient My Orders Orders - PRIMO EDWARDS Procedure Category Date Status Time Admit ADMIT 08/16/24 Transmitted 20:00 Loperamide Capsule PHA 08/16/24 In Process (Imodium Capsule) 20:15 Amlodipine Tablet PHA 08/17/24 In Process (Norvasc Tablet) 10:00 Aspirin Tablet PHA 08/17/24 In Process 10:00 Carvedilol Tablet PHA 08/16/24 In Process (Coreg Tablet) 22:00 Sacubitril-Valsartan PHA 08/16/24 In Process (Entresto 24-26 Mg 22:00 Atorvastatin (Lipitor) PHA 08/16/24 In Process 22:00 Basic Metabolic Panel LAB 08/17/24 Verified 04:00 Glucose Blood PHA 08/16/24 In Process (Accu-Chek Comfort 22:00 Insulin R (Human) PHA 08/16/24 In Process (Insulin R) 22:00 Dextrose 50% Syringe PHA 08/16/24 In Process 20:15 Hydrocodone-Acet PHA 08/16/24 In Process 5/325mg Tab ([place] 20:15 Ondansetron Hcl PHA 08/16/24 In Process (Zofran) 20:15 Complete Blood Count LAB 08/17/24 Verified 04:00 Condition: Stable TORO 08/16/24 In Process 20:04 Acetaminophen Tablet PHA 08/16/24 In Process (Tylenol Tablet) 20:15 Clear Liq Diet DIET 08/17/24 Transmitted Breakfast Bedrest With Bathroom TORO 08/16/24 In Process Privileg 20:04 Metronidazole Ivpb PHA 08/17/24 Verified Flagyl 06:00 *Dr[facility] CONS 08/16/24 Verified -[place] 22:08 Date of Service: Aug 16, 2024 Billing Provider: PRIMO EDWARDS Common Visit Codes: [id number] INP/OBS CARE (MOD) PRIMO EDWARDS Aug 16, 2024 22:18
[2024-08-16] MEDS: SACUBITRIL-VALSARTAN 24mg/26mg TAB PO SCH (23:32)
[2024-08-16] MEDS: CARVEDILOL 12.5 MG TAB PO SCH (23:33)
[2024-08-16] MEDS: ATORVASTATIN 20 MG TAB PO SCH (23:33)
[2024-08-17] VITALS (7 sets, daily range): BP systolic 134–167; BP diastolic 70–89; PULSE 78–84; RESP 16–20; TEMP 97.5–99; O2SAT 96–99
[2024-08-17 01:01] LABS: Hematocrit 24.8 % (41.0-53.0); Hemoglobin 8.5 g/dL (13.5-17.5)
[2024-08-17] MEDS: metroNIDAZOLE 500MG/100ML 100 ML IV SCH (05:44)
[2024-08-17] MEDS ORDERED: HYDRX10T PO (06:36)
[2024-08-17] MEDS ORDERED: CARV3.1240 PO (06:36)
[2024-08-17] MEDS ORDERED: CITA10TA5 PO (06:36)
[2024-08-17] MEDS ORDERED: ATOR10TA52 PO (06:36)
[2024-08-17] MEDS ORDERED: ASPI-543 PO (06:36)
[2024-08-17] MEDS ORDERED: AMLO1TAB22 PO (06:36)
[2024-08-17 07:50] LABS: Basophils # (auto) 0 10 ^3/uL (0-0.2); Basophils % (auto) 0.8 % (0.0-2.0); Eosinophils # (auto) 0.3 10 ^3/uL (0-0.8); Eosinophils % (auto) 5.5 % (0.0-7.0); Hematocrit 24.5 % (41.0-53.0); Hemoglobin 8.7 g/dL (13.5-17.5); Lymphocytes # (auto) 1.4 10 ^3/uL (0.4-5.4); Lymphocytes % (auto) 25.3 % (10.0-50.0); Mean Corpuscular Hemoglobin 30.3 pg (28.0-32.0); Mean Corpuscular Hgb Conc. 35.4 g/dL (32.0-36.0); Mean Corpuscular Volume 85.6 fL (80.0-100.0); Monocytes # (auto) 0.3 10 ^3/uL (0-1.3); Monocytes % (auto) 6.2 % (0.0-12.0); Neutrophils # (auto) 3.4 10 ^3/uL (1.6-8.6); Neutrophils % (auto) 62.2 % (37.0-80.0); Platelet Count (auto) 163 10^3/uL (140-450); Red Blood Cells 2.86 10^6/uL (4.5-5.90); Red Cell Distribution Width 13.5 % (11.8-14.3); White Blood Cell 5.4 10^3/uL (4.4-10.8)
[2024-08-17 07:55] LABS: Chloride 101 mmol/L (98-107); Potassium 4.3 mmol/L (3.5-5.1); Sodium 141 mmol/L (136-145)
[2024-08-17 07:56] LABS: Anion Gap 13 (5-15); Carbon Dioxide 27 mmol/L (20-31)
[2024-08-17 07:57] LABS: Calcium 9.2 mg/dL (8.7-10.4)
[2024-08-17 08:02] LABS: BUN/Creatinine Ratio 5.6 (10.0-20.0); Blood Urea Nitrogen 54 mg/dL (9-23); Glucose 111 mg/dL (74-106)
[2024-08-17] MEDS: ASPirin 81 mg TAB PO SCH (09:38)
[2024-08-17] MEDS: amLODIPine BESYLATE 5 MG TAB PO SCH (09:39)
--- NOTE | 2024-08-17 10:07 | DVHPN2 ---
Progress Note Date Seen: Aug 17, 2024 Medical Necessity Reason Pt with a Central, PICC or Fol: No Subjective Patient reports: No new complaints Review of Systems: HEENT:Normal, CVS:Normal, RESPIRATORY:Normal, GI:Normal, :Normal, MSK:Normal, NEURO:Normal Objective vital signs Vital Sign Date Time Temp Pulse Resp B/P (MAP) Pulse Ox O2 Delivery O2 Flow Rate FiO2 08/17/24 09:39 157/76 08/17/24 09:38 80 08/17/24 05:00 97.6 18 97 97.6 08/17/24 00:00 Room Air* 0 21 Total Intake and Output 08/16/24 08/16/24 08/17/24 15:00 23:00 07:00 Intake Total 616 ml 100 ml Output Total 0 ml Balance 616 ml 100 ml medications Current Medications Medications Dose Ordered Sig/Jaxon Route Start Time Stop Time Status Last Admin Dose Admin Loperamide HCl 2 mg PRN PRN PO 08/16/24 20:15 Amlodipine Besylate 10 mg DAILY PO 08/17/24 10:00 Aspirin 81 mg DAILY PO 08/17/24 10:00 Carvedilol 12.5 mg Q12HR PO 08/16/24 22:00 08/16/24 23:33 12.5 MG Sacubitril/ Valsartan 1 tab BID PO 08/16/24 22:00 08/16/24 23:32 1 TAB Atorvastatin Calcium 40 mg HS PO 08/16/24 22:00 08/16/24 23:33 40 MG Diagnostic Test (Pha) 1 strip ACHS 08/16/24 22:00 08/17/24 06:18 1 STRIP Insulin Human Regular ACHS SC 08/16/24 22:00 Dextrose 50 ml UD PRN IV 08/16/24 20:15 Acetaminophen/ Hydrocodone Bitart 1 tab Q4HP PRN PO 08/16/24 20:15 Ondansetron HCl 4 mg Q4HP PRN IV 08/16/24 20:15 Acetaminophen 650 mg Q6HP PRN PO 08/16/24 20:15 Metronidazole 100 ml @ 100 mls/hr Q8HR IV 08/17/24 06:00 08/17/24 05:44 100 MLS/HR Examination: GENERAL:Normal, HEENT:Normal, NECK:Normal, LUNGS:Normal, CVS:Normal, ABDOMEN:Normal, MSK:Normal, SKIN:Normal, NEURO:Normal, :Normal laboratory and microbiology Laboratory Tests 08/17/24 05:02 Test 08/17/24 05:02 Range/Units Serum Glucose 111 H 74-106 mg/dL Microbiology Date/Time Source Procedure Growth Status 08/16/24 12:52 Stool Stool Culture - Preliminary Resulted 08/16/24 12:52 Stool Shiga Toxin I & II - Final Resulted Problem List/Assessment/Plan Problem List/Assessment/Plan #1 anemia: s/p transfusion #2 diarrhea: stopped, advance diet #3 esrd: dialysis today #4 dm: ssi #5 htn advance care planning- full code- time spent 19 mins Plan discussed with: Patient My Orders My Orders Orders - PRIMO CAMACHO MD Procedure Category Date Status Time Renal DIET 08/17/24 Verified Standard(2gna,3gk,Lopho) Lunch B-Complex W/ C & PHA 08/17/24 Verified Folic Tablet 10:15 B-Complex W/ C & PHA 08/18/24 Verified Folic Tablet 10:00 Complete Blood Count LAB 08/18/24 Verified 06:00 Comprehensive LAB 08/18/24 Verified Metabolic Panel 06:00 Hemoglobin A1c LAB 08/18/24 Verified 06:00 Chest Portable XY 08/17/24 Verified 10:01 Echo 2d Mode Cardiac US 08/17/24 Verified DOP 10:01 Date of Service: Aug 17, 2024 Billing Provider: PRIMO CAMACHO MD Common Visit Codes: [id number] INP/OBS CARE(HIGH) Secondary Visit Codes: [id number] CARE PLAN 30 MINUTES CC Plasma Assessment Blood Product Administration S: [id number] PRIMO CAMACHO MD Aug 17, 2024 10:06
[2024-08-17] MEDS: B-COMPLEX W/ C & FOLIC ACID(NEPHROVITE TAB) PO ONE (10:15)
--- NOTE | 2024-08-17 11:01 | DVHINCON2 ---
Date of service: Aug 17, 2024 Reason for Consultation End-stage renal disease History of Present Illness 53-year-old male past medical history of end-stage renal disease on hemodialysis known to dialysis unit has history of chronic constipation recently discharged for constipation returns to the hospital with profuse diarrhea. Patient was admitted with a diagnosis of anemia. Nephrology consulted for hemodialysis treatment Past Medical History as above Allergies: Coded Allergies: NO KNOWN ALLERGIES (Unverified , 05/25/24) Home Meds Active Scripts Ciprofloxacin-Hydrocortisone (Cipro Hc 0.2-1 %) 1 Yaritza Yaritza, 4 DROP OT BID, #7.5 ML Prov:[place] VERMA 06/25/24 Acetaminophen (Tylenol Extra Strength Fo) 500 Mg Tab, 1000 MG PO BID, #30 TAB Prov:[place] VERMA 06/25/24 Reported Medications Atorvastatin Calcium (ATORVASTATIN CALCIUM) Unknown Strength Tab, PO DAILY, #30 TAB 5 Refills 08/17/24 Amlodipine Besylate (Amlodipine Besylate) Unknown Strength Tab, PO DAILY for 30 Days, MG 08/17/24 Citalopram Hydrobromide (Citalopram Hydrobromide) Unknown Strength Tab, PO DAILY for 30 Days, MG 08/17/24 Aspirin (Aspir-Low) 81 Mg Tab, 81 MG PO DAILY for 30 Days, MG 08/17/24 Hydroxyzine Hcl (Hydroxyzine Hcl) Unknown Strength Tab, PO for 30 Days, MG 08/17/24 Carvedilol (Carvedilol) Unknown Strength Tab, PO BID for 30 Days, MG 08/17/24 Current Medications Current Medications Medications (Trade) Dose Ordered Sig/Jaxon Route PRN Reason Start Time Stop Time Status Last Admin Loperamide HCl (Imodium Capsule) 2 mg PRN PRN PO FOR DIARRHEA 08/16/24 20:15 Amlodipine Besylate (Norvasc Tablet) 10 mg DAILY PO 08/17/24 10:00 Aspirin 81 mg DAILY PO 08/17/24 10:00 Carvedilol (Coreg Tablet) 12.5 mg Q12HR PO 08/16/24 22:00 08/16/24 23:33 Sacubitril/ Valsartan (Entresto 24-26 Mg tab) 1 tab BID PO 08/16/24 22:00 08/16/24 23:32 Atorvastatin Calcium (Lipitor) 40 mg HS PO 08/16/24 22:00 08/16/24 23:33 Diagnostic Test (Pha) (Accu-Chek Comfort Curve T) 1 strip ACHS 08/16/24 22:00 08/17/24 10:52 Insulin Human Regular (InsuLIN R) ACHS SC 08/16/24 22:00 Dextrose 50 ml UD PRN IV Blood Sugar LESS THAN 60 08/16/24 20:15 Acetaminophen/ Hydrocodone Bitart ([place] 5/325MG Tab) 1 tab Q4HP PRN PO MODERATE PAIN (4-6 PAIN SCALE) 08/16/24 20:15 Ondansetron HCl (Zofran) 4 mg Q4HP PRN IV NAUSEA / VOMITING 08/16/24 20:15 Acetaminophen (Tylenol Tablet) 650 mg Q6HP PRN PO PAIN SCALE 1-3 OR TEMP>100.4 08/16/24 20:15 Metronidazole 100 ml @ 100 mls/hr Q8HR IV 08/17/24 06:00 08/17/24 10:05 DC 08/17/24 05:44 Multivit/Ca Carb/ B Cmplx/FA/Prenat (Nephro-Rianna Tablet) 1 tab DAILY PO 08/18/24 10:00 UNV Citalopram Hydrobromide (CeleXA TABLET) 20 mg DAILY PO 08/18/24 10:00 UNV Family History: CKD (chronic kidney disease) G8 MOTHER FH: CHF (congestive heart failure) G8 MOTHER Review of Systems diarrhea H&P Exam Vital Signs/I&O Vital Sign Date Time Temp Pulse Resp B/P (MAP) Pulse Ox O2 Delivery O2 Flow Rate FiO2 08/17/24 09:39 157/76 08/17/24 09:38 80 08/17/24 08:39 98.8 16 97 98.8 08/17/24 00:00 Room Air* 0 21 Intake and Output 08/16/24 08/17/24 19:00 07:00 Intake Total 0 ml 716 ml Output Total 0 ml Balance 0 ml 716 ml Intake Oral 116 ml Blood Product 600 ml Other 0 ml Output Urine Total 0 ml Physical Exam Frail appearing male Nonacute distress Abdomen is soft No pitting edema Labs/Diagnostic Data Labs/Diagnostic Data Laboratory Tests Test 08/17/24 05:02 08/17/24 00:28 08/16/24 23:26 08/16/24 13:30 Range/Units White Blood Count 5.4 5.3 4.4-10.8 10^3/uL Red Blood Count 2.86 L 2.30 L 4.5-5.90 10^6/uL Hemoglobin 8.7 L 8.5 #L 6.9 *L 13.5-17.5 g/dL Hematocrit 24.5 L 24.8 #L 19.4 #L 41.0-53.0 % Mean Corpuscular Volume 85.6 84.5 80.0-100.0 fL Mean Corpuscular Hemoglobin 30.3 30.0 28.0-32.0 pg Mean Corpuscular Hemoglobin Concent 35.4 35.5 32.0-36.0 g/dL Red Cell Distribution Width 13.5 13.5 11.8-14.3 % Platelet Count 163 142 140-450 10^3/uL Mean Platelet Volume 7.9 7.6 6.9-10.8 fL Neutrophils (%) (Auto) 62.2 67.8 37.0-80.0 % Lymphocytes (%) (Auto) 25.3 19.6 10.0-50.0 % Monocytes (%) (Auto) 6.2 7.4 0.0-12.0 % Eosinophils (%) (Auto) 5.5 4.3 0.0-7.0 % Basophils (%) (Auto) 0.8 0.9 0.0-2.0 % Neutrophils # (Auto) 3.4 3.6 1.6-8.6 10 ^3/uL Lymphocytes # (Auto) 1.4 1.0 0.4-5.4 10 ^3/uL Monocytes # (Auto) 0.3 0.4 0-1.3 10 ^3/uL Eosinophils # (Auto) 0.3 0.2 0-0.8 10 ^3/uL Basophils # (Auto) 0 0 0-0.2 10 ^3/uL Nucleated Red Blood Cells 0.0 0.1 % Sodium Level 141 138 136-145 mmol/L Potassium Level 4.3 4.2 3.5-5.1 mmol/L Chloride Level 101 98 98-107 mmol/L Carbon Dioxide Level 27 27 20-31 mmol/L Anion Gap 13 13 5-15 Blood Urea Nitrogen 54 H 45 H 9-23 mg/dL Creatinine 9.61 H 8.73 H 0.700-1.30 mg/dL Glomerular Filtration Rate Calc 6 7 >90 mL/min BUN/Creatinine Ratio 5.6 L 5.2 L 10.0-20.0 Serum Glucose 111 H 138 H 74-106 mg/dL Calcium Level 9.2 9.3 8.7-10.4 mg/dL POC Glucose 196 H 70-106 mg/dl Lactic Acid Level 0.8 0.4-2.0 mmol/L Troponin I High Sensitivity 11 </=54 ng/L Lipase 33 12-53 U/L Test 08/16/24 12:52 Range/Units Stool Occult Blood Negative Negative Stool Occult Blood Sample #3 Negative Stool for White Cells Rare Assessment End-stage renal disease on hemodialysis Anemia Hypertension Diarrhea Hemodialysis treatment today Epogen Patient is status post PRBC Resume blood pressure medications Rest of care as per primary medical team Plan discussed with: Patient EMILY ARCHER MD Aug 17, 2024 11:01
--- NOTE | 2024-08-17 11:36 | DVH ---
INDICATION: RENAL FAILURE TECHNIQUE: Frontal view of the chest. COMPARISON: None FINDINGS: . The heart and mediastinal contours are grossly unremarkable. There is no evidence of pleural disea se. The lungs are clear. The bony structures of the chest are intact without fracture. IMPRESSION: 1. No evidence of acute disease.
--- NOTE | 2024-08-17 12:02 | DVHSR ---
APPROVED REPORT EXAM: Two-dimensional and M-mode echocardiogram with Doppler and color Doppler. Blood Pressure: 157/76 mmHg INDICATION CHF RISK FACTORS Height: 5'7", Weight: 121 DIMENSIONS LVDd4.9 (3.8-5.7cm)LA (2D)3.7 (1.9-4.0cm)Aortic Root3.5 (2.0-3.7cm) LVDs3.6 (2.5-4.0cm)LA (MM) (1.9-4.0cm)Aortic Cusp Exc1.8 (1.5-2.0cm) EF (%) 50.0 (55-70%)Rt. Atrium3.5 (1.9-4.0cm)Asc. Aorta cm IVSd0.8 (0.7-1.1cm)RV (D)4.3 (1.8-2.4cm) PWd0.9 (0.7-1.1cm) Mitral Valve MitralMitral Stenosis E wave1.37m/sMV Mean GR.5mmHg A wave1.20m/sMV Peak GR.9mmHg E/A ratio1.12D MVAcm2 DECEL [id number] 1/2 [id number] IVRTmsDop MVA3.18cm2 Aortic Valve Aortic ValveAortic Stenosis V10.83m/Soni Mean GR.4mmHg V21.34m/Soni Peak GR.7mmHg LVOT Diameter1.8 (1.8-2.4cm)Doppler AVA1.58cm2 Tricuspid Valve TR Velocity2.79m/s [id number] Other Information Technically limited study due to patient position. Conclusion lvef 65% normal rv function no severe valve abnormalities noted
[2024-08-17 12:17] LABS: % Iron Saturation 47.2 % (20-55)
[2024-08-17] MEDS: EPOETIN ALFA-EPBX 10,000 UNIT/1ML VIAL SC SCH (12:22)
[2024-08-17 13:01] LABS: Hepatitis A Ab IgM Negative; Hepatitis B Core IgM Negative (Negative); Hepatitis B Surface Antigen Negative (Negative); Hepatitis C Antibody Negative (Negative)
[2024-08-17] MEDS: CITALOPRAM HYDROBR 20 MG TAB PO ONE (18:12)
[2024-08-17] MEDS: SODIUM CHL 0.9% 1000 ML BAG XX ONE (18:44)
[2024-08-18] VITALS (8 sets, daily range): BP systolic 104–173; BP diastolic 72–91; PULSE 73–84; RESP 12–19; TEMP 97.9–99.2; O2SAT 97–100
[2024-08-18 05:21] LABS: Basophils # (auto) 0 10 ^3/uL (0-0.2); Basophils % (auto) 0.9 % (0.0-2.0); Eosinophils # (auto) 0.3 10 ^3/uL (0-0.8); Eosinophils % (auto) 5.8 % (0.0-7.0); Hematocrit 26.2 % (41.0-53.0); Hemoglobin 8.9 g/dL (13.5-17.5); Lymphocytes # (auto) 1.5 10 ^3/uL (0.4-5.4); Lymphocytes % (auto) 28.9 % (10.0-50.0); Mean Corpuscular Hgb Conc. 34.1 g/dL (32.0-36.0); Mean Corpuscular Volume 87.9 fL (80.0-100.0); Monocytes # (auto) 0.4 10 ^3/uL (0-1.3); Monocytes % (auto) 7.9 % (0.0-12.0); Neutrophils # (auto) 2.9 10 ^3/uL (1.6-8.6); Neutrophils % (auto) 56.5 % (37.0-80.0); Nucleated Red Blood Cells % 0.1 %; Platelet Count (auto) 157 10^3/uL (140-450); Red Blood Cells 2.98 10^6/uL (4.5-5.90); Red Cell Distribution Width 13.6 % (11.8-14.3); White Blood Cell 5.2 10^3/uL (4.4-10.8)
[2024-08-18 05:29] LABS: Alanine Aminotransferase 17 U/L (7-40); Albumin 4.1 g/dL (3.2-4.8); Alkaline Phosphatase 75 U/L (46-116); Anion Gap 14 (5-15); BUN/Creatinine Ratio 4.5 (10.0-20.0); Bilirubin, Total 0.4 mg/dL (0.2-1.0); Blood Urea Nitrogen 33 mg/dL (9-23); Calcium 8.8 mg/dL (8.7-10.4); Carbon Dioxide 25 mmol/L (20-31); Chloride 100 mmol/L (98-107); Glucose 92 mg/dL (74-106); Potassium 3.8 mmol/L (3.5-5.1); Sodium 139 mmol/L (136-145); Total Protein 6.7 g/dL (5.7-8.2)
[2024-08-18 05:40] LABS: Aspartate Aminotransferase 10 U/L (13-40)
--- NOTE | 2024-08-18 09:44 | DVHPN2 ---
Progress Note Date Seen: Aug 18, 2024 Medical Necessity Reason Pt with a Central, PICC or Fol: No Objective vital signs Vital Sign Date Time Temp Pulse Resp B/P (MAP) Pulse Ox O2 Delivery O2 Flow Rate FiO2 08/18/24 08:10 81 16 97 Room Air* 0 21 08/18/24 05:00 98.1 165/86 (112) 98.1 Total Intake and Output 08/17/24 08/17/24 08/18/24 15:00 23:00 07:00 Intake Total 150 ml 200 ml Balance 150 ml 200 ml medications Current Medications Medications Dose Ordered Sig/Jaxon Route Start Time Stop Time Status Last Admin Dose Admin Loperamide HCl 2 mg PRN PRN PO 08/16/24 20:15 Amlodipine Besylate 10 mg DAILY PO 08/17/24 10:00 Aspirin 81 mg DAILY PO 08/17/24 10:00 Carvedilol 12.5 mg Q12HR PO 08/16/24 22:00 08/17/24 21:34 12.5 MG Sacubitril/ Valsartan 1 tab BID PO 08/16/24 22:00 08/17/24 21:34 1 TAB Atorvastatin Calcium 40 mg HS PO 08/16/24 22:00 08/17/24 21:34 40 MG Diagnostic Test (Pha) 1 strip ACHS 08/16/24 22:00 08/18/24 05:52 1 STRIP Insulin Human Regular ACHS SC 08/16/24 22:00 Dextrose 50 ml UD PRN IV 08/16/24 20:15 Acetaminophen/ Hydrocodone Bitart 1 tab Q4HP PRN PO 08/16/24 20:15 Ondansetron HCl 4 mg Q4HP PRN IV 08/16/24 20:15 Acetaminophen 650 mg Q6HP PRN PO 08/16/24 20:15 Multivit/Ca Carb/ B Cmplx/FA/Prenat 1 tab DAILY PO 08/18/24 10:00 Citalopram Hydrobromide 20 mg DAILY PO 08/18/24 10:00 Epoetin Semaj-epbx 10,000 unit MWF SC 08/17/24 11:00 08/17/24 12:22 10,000 UNIT Examination: GENERAL:Normal, CVS:Normal laboratory and microbiology Laboratory Tests 08/18/24 04:57 Test 08/18/24 04:57 Range/Units Serum Glucose 92 74-106 mg/dL Microbiology Date/Time Source Procedure Growth Status 08/16/24 12:52 Stool Stool Culture - Preliminary Resulted 08/16/24 12:52 Stool Shiga Toxin I & II - Final Resulted Problem List/Assessment/Plan Problem List/Assessment/Plan End-stage renal disease on hemodialysis Anemia due to ckd Hypertension Diarrhea continue routine dialysis Epogen Resume blood pressure medications Rest of care as per primary medical team Plan discussed with: Patient My Orders My Orders Orders - EMILY ARCHER MD Procedure Category Date Status Time Hemodialysis Orders ORDERS 08/17/24 Transmitted 10:58 Dialysis Nursing TORO 08/17/24 In Process Message 10:58 Document Fluid Input TORO 08/17/24 In Process And Outpu 10:58 Epoetin Semaj-Epbx PHA 08/17/24 In Process (Retacrit) 11:00 CC Plasma Assessment Blood Product Administration S: [id number] EMILY ARCHER MD Aug 18, 2024 09:44
[2024-08-18] MEDS: B-COMPLEX W/ C & FOLIC ACID(NEPHROVITE TAB) PO SCH (09:46)
[2024-08-18] MEDS: CITALOPRAM HYDROBR 20 MG TAB PO SCH (09:48)
[2024-08-18] MEDS ORDERED: guaiFENesin 200 MG/10 ML UD PO PRN (10:15)
--- NOTE | 2024-08-18 10:16 | DVHPN2 ---
Progress Note Date Seen: Aug 18, 2024 Medical Necessity Reason Pt with a Central, PICC or Fol: No Subjective Patient reports: No new complaints Review of Systems: HEENT:Normal, CVS:Normal, RESPIRATORY:Normal, GI:Normal, :Normal, MSK:Normal, NEURO:Normal Objective vital signs Vital Sign Date Time Temp Pulse Resp B/P (MAP) Pulse Ox O2 Delivery O2 Flow Rate FiO2 08/18/24 09:48 173/91 08/18/24 09:46 81 08/18/24 08:30 99.2 16 97 99.2 08/18/24 08:10 Room Air* 0 21 Total Intake and Output 08/17/24 08/17/24 08/18/24 15:00 23:00 07:00 Intake Total 150 ml 200 ml Balance 150 ml 200 ml medications Current Medications Medications Dose Ordered Sig/Jaxon Route Start Time Stop Time Status Last Admin Dose Admin Loperamide HCl 2 mg PRN PRN PO 08/16/24 20:15 Amlodipine Besylate 10 mg DAILY PO 08/17/24 10:00 08/18/24 09:48 10 MG Aspirin 81 mg DAILY PO 08/17/24 10:00 08/18/24 09:47 81 MG Carvedilol 12.5 mg Q12HR PO 08/16/24 22:00 08/18/24 09:46 12.5 MG Sacubitril/ Valsartan 1 tab BID PO 08/16/24 22:00 08/18/24 09:47 1 TAB Atorvastatin Calcium 40 mg HS PO 08/16/24 22:00 08/17/24 21:34 40 MG Diagnostic Test (Pha) 1 strip ACHS 08/16/24 22:00 08/18/24 05:52 1 STRIP Insulin Human Regular ACHS SC 08/16/24 22:00 Dextrose 50 ml UD PRN IV 08/16/24 20:15 Acetaminophen/ Hydrocodone Bitart 1 tab Q4HP PRN PO 08/16/24 20:15 Ondansetron HCl 4 mg Q4HP PRN IV 08/16/24 20:15 Acetaminophen 650 mg Q6HP PRN PO 08/16/24 20:15 Multivit/Ca Carb/ B Cmplx/FA/Prenat 1 tab DAILY PO 08/18/24 10:00 08/18/24 09:46 1 TAB Citalopram Hydrobromide 20 mg DAILY PO 08/18/24 10:00 08/18/24 09:48 20 MG Epoetin Semaj-epbx 10,000 unit MWF [place] 08/17/24 11:00 08/17/24 12:22 10,000 UNIT Examination: GENERAL:Normal, HEENT:Normal, NECK:Normal, LUNGS:Normal, CVS:Normal, ABDOMEN:Normal, MSK:Normal, SKIN:Normal, NEURO:Normal, :Normal laboratory and microbiology Laboratory Tests 08/18/24 04:57 Test 08/18/24 04:57 Range/Units Serum Glucose 92 74-106 mg/dL Microbiology Date/Time Source Procedure Growth Status 08/16/24 12:52 Stool Stool Culture - Preliminary Resulted 08/16/24 12:52 Stool Shiga Toxin I & II - Final Resulted Problem List/Assessment/Plan Problem List/Assessment/Plan #1 anemia: s/p transfusion #2 diarrhea: stopped, advance diet #3 esrd: dialysis today #4 dm: ssi #5 htn: adjust meds #6 ?acute bronchitis: zithromax advance care planning- full code- time spent 19 mins Plan discussed with: Patient My Orders My Orders Orders - PRIMO CAMACHO MD Procedure Category Date Status Time Azithromycin Tablet PHA 08/18/24 Verified (Zithromax Tablet) 10:15 Azithromycin Tablet PHA 08/19/24 Verified (Zithromax Tablet) 10:00 Guaifenesin Plain PHA 08/18/24 Verified Liquid (Robitussin Dionisio 10:15 Hydralazine Hcl PHA 08/18/24 Verified Tablet (Apresoline 10:15 Hydralazine Hcl PHA 08/18/24 Verified Tablet (Apresoline 22:00 Date of Service: Aug 18, 2024 Billing Provider: PRIMO CAMACHO MD Common Visit Codes: [id number] INP/OBS CARE(HIGH) CC Plasma Assessment Blood Product Administration S: 181 PRIMO CAMACHO MD Aug 18, 2024 10:16
[2024-08-18] MEDS: hydrALAZINE HCL 25 MG TAB PO ONE (11:09)
[2024-08-18] MEDS: AZITHROMYCIN 250 MG TAB PO ONE (11:09)
[2024-08-18] MEDS: hydrALAZINE HCL 25 MG TAB PO SCH (21:40)
[2024-08-19] VITALS (9 sets, daily range): BP systolic 110–169; BP diastolic 61–86; PULSE 65–82; RESP 16–18; TEMP 97.7–98.2; O2SAT 95–99
[2024-08-19] MEDS: AZITHROMYCIN 250 MG TAB PO SCH (10:28)
--- NOTE | 2024-08-19 10:35 | DVHDS2 ---
Discharge Summary Date of Admission Aug 16, 2024 at 20:00 Date of Discharge: Aug 19, 2024 Labs/Diagnostic Data: Laboratory Results Test 08/19/24 06:37 08/18/24 04:57 08/17/24 05:02 08/16/24 13:30 POC Glucose 121 mg/dl (70-106) White Blood Count 5.2 10^3/uL (4.4-10.8) Red Blood Count 2.98 10^6/uL (4.5-5.90) Hemoglobin 8.9 g/dL (13.5-17.5) Hematocrit 26.2 % (41.0-53.0) Mean Corpuscular Volume 87.9 fL (80.0-100.0) Mean Corpuscular Hemoglobin 30.0 pg (28.0-32.0) Mean Corpuscular Hemoglobin Concent 34.1 g/dL (32.0-36.0) Red Cell Distribution Width 13.6 % (11.8-14.3) Platelet Count 157 10^3/uL (140-450) Mean Platelet Volume 7.4 fL (6.9-10.8) Neutrophils (%) (Auto) 56.5 % (37.0-80.0) Lymphocytes (%) (Auto) 28.9 % (10.0-50.0) Monocytes (%) (Auto) 7.9 % (0.0-12.0) Eosinophils (%) (Auto) 5.8 % (0.0-7.0) Basophils (%) (Auto) 0.9 % (0.0-2.0) Neutrophils # (Auto) 2.9 10 ^3/uL (1.6-8.6) Lymphocytes # (Auto) 1.5 10 ^3/uL (0.4-5.4) Monocytes # (Auto) 0.4 10 ^3/uL (0-1.3) Eosinophils # (Auto) 0.3 10 ^3/uL (0-0.8) Basophils # (Auto) 0 10 ^3/uL (0-0.2) Nucleated Red Blood Cells 0.1 % Sodium Level 139 mmol/L (136-145) Potassium Level 3.8 mmol/L (3.5-5.1) Chloride Level 100 mmol/L (98-107) Carbon Dioxide Level 25 mmol/L (20-31) Anion Gap 14 (5-15) Blood Urea Nitrogen 33 mg/dL (9-23) Creatinine 7.32 mg/dL (0.700-1.30) Glomerular Filtration Rate Calc 8 mL/min (>90) BUN/Creatinine Ratio 4.5 (10.0-20.0) Serum Glucose 92 mg/dL (74-106) Hemoglobin A1c 6.6 % A1C (<5.7) Calcium Level 8.8 mg/dL (8.7-10.4) Total Bilirubin 0.4 mg/dL (0.2-1.0) Aspartate Amino Transferase (AST) 10 U/L (13-40) Alanine Aminotransferase (ALT) 17 U/L (7-40) Alkaline Phosphatase 75 U/L (46-116) Total Protein 6.7 g/dL (5.7-8.2) Albumin 4.1 g/dL (3.2-4.8) Iron Level 91 ug/dL (65-175) Total Iron Binding Capacity 193 ug/dL (250-425) Percent Iron Saturation 47.2 % (20-55) Ferritin 1038.7 ng/mL (22-322) Hepatitis A IgM Antibody Negative Hepatitis B Surface Antigen Negative (Negative) Hepatitis B Core IgM Antibody Negative (Negative) Hepatitis C Antibody Negative (Negative) Lactic Acid Level 0.8 mmol/L (0.4-2.0) Troponin I High Sensitivity 11 ng/L (</=54) Lipase 33 U/L (12-53) Test 08/16/24 12:52 Stool Occult Blood Negative (Negative) Stool Occult Blood Sample #3 (Negative) Stool for White Cells Rare Other Laboratory Tests 08/18/24 04:57 Brief Hx & Hospital Course: see dictated note Condition at Discharge: Fair Final Diagnosis/Problems List anemia Discharge Disposition: Home Discharge Instruct/Medications Diet: Renal Activity: No Restrictions, As Tolerated Follow Up/Referral: fu with pcp/dialysis Medications: resume home meds script to pharmacy Discharge Statement: "Patient was advised to return to the ER or call 911 if any headaches, dizziness, shortness of breath, chest pain, abdominal pain, bleeding, fevers, or worsening of medical condition. Patient was counseled about treatment plan, medications, possible side effects, patientverbalized understanding. All questions were answered to the best of my ability. This discharge took greater then 30 minutes in planning, reviewing documentation, counseling the patient, and discussing with other team members." ASSESSMENT ASSESSMENT Assessment anemia Date of Service: Aug 19, 2024 Billing Provider: PRIMO CAMACHO MD Common Visit Codes: 49929-AUW/OBS DISCH DAY >30min PRIMO CAMACHO MD Aug 19, 2024 10:35
[2024-08-19] MEDS ORDERED: B-CO1TAB44 PO (10:38)
[2024-08-19] MEDS ORDERED: AZIT-74 PO (10:38)
--- NOTE | 2024-08-19 11:17 | DVHDS ---
DATE OF DISCHARGE: 08/19/2024 HISTORY OF PRESENT ILLNESS: The patient is a 53-year-old gentleman who was admitted with history of diarrhea and has history of end-stage renal disease, diabetes, and hypertension. HOSPITAL COURSE: The patient was noted to be anemic with a hemoglobin of 6.9. The patient was transfused 1 unit of blood. The patient's hemoglobin at time of discharge is 8.9. The patient's stool for C. diff was negative and stool cultures were essentially negative. The patient had a chest x-ray that showed no acute disease. He was seen in Nephrology consult by Dr. Delong and continued on hemodialysis. Echocardiogram done showed ejection fraction of 65%. The patient will now be discharged home to resume his home medications as well as to be on Nephro-Rianna 1 tab daily along with Zithromax 250 mg daily for 5 days. He will follow up with his primary and the dialysis clinic. FINAL DIAGNOSES: * Anemia, status post transfusion. * Diarrhea, questionable acute gastroenteritis. * End-stage renal disease, on hemodialysis. * Diabetes mellitus. * Hypertension. * Likely acute bronchitis. Time spent on discharge planning and review of plan with the patient and nursing is 37 minutes. MD LIO Swan/ZOE TID: [id number] RECEIPT: [id number]
--- NOTE | 2024-08-19 16:18 | DVHPN2 ---
Progress Note Date Seen: Aug 19, 2024 Medical Necessity Reason Pt with a Central, PICC or Fol: No Objective vital signs Vital Sign Date Time Temp Pulse Resp B/P (MAP) Pulse Ox O2 Delivery O2 Flow Rate FiO2 08/19/24 13:00 97.8 70 16 123/61 (81) 97 97.8 08/19/24 07:50 Room Air* 0 21 Total Intake and Output 08/18/24 08/18/24 08/19/24 15:00 23:00 07:00 Intake Total 240 ml 300 ml Output Total 0 ml Balance 240 ml 300 ml medications Current Medications Medications Dose Ordered Sig/Jaxon Route Start Time Stop Time Status Last Admin Dose Admin Loperamide HCl 2 mg PRN PRN PO 08/16/24 20:15 Amlodipine Besylate 10 mg DAILY PO 08/17/24 10:00 08/18/24 09:48 10 MG Aspirin 81 mg DAILY PO 08/17/24 10:00 08/19/24 10:28 81 MG Carvedilol 12.5 mg Q12HR PO 08/16/24 22:00 08/18/24 21:41 12.5 MG Sacubitril/ Valsartan 1 tab BID PO 08/16/24 22:00 08/18/24 21:41 1 TAB Atorvastatin Calcium 40 mg HS PO 08/16/24 22:00 08/18/24 21:41 40 MG Diagnostic Test (Pha) 1 strip ACHS 08/16/24 22:00 08/19/24 11:10 1 STRIP Insulin Human Regular ACHS SC 08/16/24 22:00 Dextrose 50 ml UD PRN IV 08/16/24 20:15 Acetaminophen/ Hydrocodone Bitart 1 tab Q4HP PRN PO 08/16/24 20:15 Ondansetron HCl 4 mg Q4HP PRN IV 08/16/24 20:15 Acetaminophen 650 mg Q6HP PRN PO 08/16/24 20:15 Multivit/Ca Carb/ B Cmplx/FA/Prenat 1 tab DAILY PO 08/18/24 10:00 08/19/24 10:28 1 TAB Citalopram Hydrobromide 20 mg DAILY PO 08/18/24 10:00 08/19/24 10:28 20 MG Epoetin Semaj-epbx 10,000 unit MWF SC 08/17/24 11:00 08/19/24 10:30 10,000 UNIT Azithromycin 500 mg DAILY PO 08/19/24 10:00 08/19/24 10:28 500 MG Guaifenesin 200 mg Q4HP PRN PO 08/18/24 10:15 Hydralazine HCl 25 mg Q12HR PO 08/18/24 22:00 08/18/24 21:40 25 MG Examination: GENERAL:Normal, CVS:Normal laboratory and microbiology Laboratory Tests 08/18/24 04:57 Test 08/18/24 04:57 Range/Units Serum Glucose 92 74-106 mg/dL Microbiology Date/Time Source Procedure Growth Status 08/16/24 12:52 Stool Stool Culture - Final Complete 08/16/24 12:52 Stool Shiga Toxin I & II - Final Complete Problem List/Assessment/Plan Problem List/Assessment/Plan End-stage renal disease on hemodialysis Anemia due to ckd Hypertension Diarrhea HD today, tolerated today Epogen Resume blood pressure medications Rest of care as per primary medical team Plan discussed with: Patient CC Plasma Assessment Blood Product Administration S: [id number] EMILY ARCHER MD Aug 19, 2024 16:18
== END 2024-08-19 20:16 | disposition home or self-care (01) | DRG 249 ==
LOC: EDUNIT# 12:29 → ER 12:29 → EDBD 12:29 → OVERFLOW 20:00 → CENTRAL 23:20
PROVIDERS: ADMIT Internal Medicine; ATTEND Internal Medicine
PROC: 30233N1 Transfusion of Nonautologous Red Blood Cells into Peripheral Vein, Percutaneous Approach (ICD-10-PCS; principal; 2024-08-16)
PROC: 5A1D70Z Performance of Urinary Filtration, Intermittent, Less than 6 Hours Per Day (ICD-10-PCS; 2024-08-17)
PROC: 5A1D70Z Performance of Urinary Filtration, Intermittent, Less than 6 Hours Per Day (ICD-10-PCS; 2024-08-19)
DX: A08.4 Viral intestinal infection, unspecified (principal); I12.0 Hypertensive chronic kidney disease with stage 5 chronic kidney disease or end stage renal disease; D63.1 Anemia in chronic kidney disease; E11.22 Type 2 diabetes mellitus with diabetic chronic kidney disease; N18.6 End stage renal disease; Z99.2 Dependence on renal dialysis; J20.9 Acute bronchitis, unspecified; Z82.49 Family history of ischemic heart disease and other diseases of the circulatory system
CPT/HCPCS: 36415; 36430; 71045; 80048; 80053; 80074; 82270; 82728; 82962; 83036; 83540; 83550; 83605; 83690; 84484; 85014; 85018; 85025; 85048; 86850; 86900; 86901; 86920; 87045; 87427; 87493; 90935; 93306; 96361; 96365; 96375; 99291; G0378; J2405; J3490

== ENCOUNTER 2024-08-29 21:06 | Emergency (ER) | payer MEDICAID ==
[~2024-08-29] VITALS: Ht 157.5 cm; Wt 55.0 kg
[~2024-08-29 21:06] MED LIST changes: +AMLO1TAB22 PO; +ASPI-543 PO; +ATOR10TA52 PO; +AZIT-74 PO; +B-CO1TAB44 PO; +CARV3.1240 PO; +CITA10TA5 PO; +HYDRX10T PO
--- NOTE | 2024-08-29 21:45 | ED.PDOC ---
History of Present Illness HPI Comments 53 y/o M presents with 2x week history of constipation. Patient endorses on not having any bowel movements following previous ED visit 2x weeks ago. Endorses on history of CHF, CVA w/left sided deficits, DM, HTN, and glaucoma and end-stage renal disease on dialysis. Denies any abdominal pain, nausea, vomiting, diarrhea, urinary symptoms, rectal pain, or further associated symptoms. Vital signs were stable at arrival. Chief Complaint: Constipation Time Seen by MD: 21:30 Primary Care Provider: ambrose Reviewed Notes: Nurses Notes, Medications, Allergies Allergies: Coded Allergies: NO KNOWN ALLERGIES (Unverified , 05/25/24) Home Meds Active Scripts Azithromycin (Zithromax) 250 Mg Tab, 250 MG PO DAILY for 5 Days, #5 TAB Prov:PRIMO CAMACHO MD 08/19/24 B-Complex W/ C & Folic Acid (Nephro Vitamins 0.8 mg) 1 Tab Tab, 1 TAB PO DAILY for 30 Days, #30 TAB 3 Refills Prov:PRIMO CAMACHO MD 08/19/24 Ciprofloxacin-Hydrocortisone (Cipro Hc 0.2-1 %) 1 Yaritza Yaritza, 4 DROP OT BID, #7.5 ML Prov:LONDON VERMA 06/25/24 Acetaminophen (Tylenol Extra Strength Fo) 500 Mg Tab, 1000 MG PO BID, #30 TAB Prov:LONDON VERMA 06/25/24 Reported Medications Atorvastatin Calcium (ATORVASTATIN CALCIUM) Unknown Strength Tab, PO DAILY, #30 TAB 5 Refills 08/17/24 Amlodipine Besylate (Amlodipine Besylate) Unknown Strength Tab, PO DAILY for 30 Days, MG 08/17/24 Citalopram Hydrobromide (Citalopram Hydrobromide) Unknown Strength Tab, PO DAILY for 30 Days, MG 08/17/24 Aspirin (Aspir-Low) 81 Mg Tab, 81 MG PO DAILY for 30 Days, MG 08/17/24 Hydroxyzine Hcl (Hydroxyzine Hcl) Unknown Strength Tab, PO for 30 Days, MG 08/17/24 Carvedilol (Carvedilol) Unknown Strength Tab, PO BID for 30 Days, MG 08/17/24 Information Source: Patient Mode of Arrival: Ambulatory Severity: Moderate Timing: Weeks Duration: Since onset Prehospital treatment: None Past Medical History PAST MEDICAL HISTORY: Anemia, CHF, CVA, DM, ESRD, HTN Surgical History: Denies all surgeries Family History Family History: Reviewed,noncontributory to illness Social History Smoker: Non-Smoker Alcohol: Denies ETOH Use Drugs: Denies Drug Use Lives In: Home Constitutional: denies: chills, diaphoresis, fatigue, fever, malaise, sweats, weakness, others EENTM: denies: blurred vision, double vision, ear bleeding, ear discharge, ear drainage, ear pain, ear ringing, eye pain, eye redness, hearing loss, mouth pain, mouth swelling, nasal discharge, nose bleeding, nose congestion, nose pain, photophobia, tearing, throat pain, throat swelling, voice changes, others Respiratory: denies: cough, hemoptysis, orthopnea, SOB at rest, shortness of breath, SOB with excertion, stridor, wheezing, others Gastrointestinal: reports: constipated; denies: abdomen distended, abdominal pain, blood streaked bowels, diarrhea, dysphagia, difficulty swallowing, hematemesis, melena, nausea, poor appetite, poor fluid intake, rectal bleeding, rectal pain, vomiting, others Genitourinary: denies: burning, dysuria, flank pain, frequency, hematuria, incontinence, penile discharge, penile sore, pain, testicle pain, testicle swelling, urgency, others Neurological: denies: dizziness, fainting, headache, left sided numbness, left sided weakness, numbness, paresthesia, pre-existing deficit, right sided numbness, right sided weakness, seizure, speech problems, tingling, tremors, weakness, others Musculoskeletal: denies: back pain, gout, joint pain, joint swelling, muscle pain, muscle stiffness, neck pain, others Integumetry: denies: bruises, change in color, change in hair/nails, dryness, laceration, lesions, lumps, rash, wounds, others Allergic/Immunocompromised: denies: Difficulty Healing, Frequent Infections, Hives, Itching, others Hematologic/Lymphatic: denies: anemia, blood clots, easy bleeding, easy bruising, swollen glands, others Endocrine: denies: excessive hunger, excessive sweating, excessive thirst, excessive urination, flushing, intolerance to cold, intolerance to heat, unexplained weight gain, unexplained weight loss, others Psychiatric: denies: anxiety, bipolar disorder, depression, hopeless, panic disorder, schizophrenia, sleepless, suicidal, others All Other Systems: Reviewed and Negative (Comprehensive review systems are negative unless otherwise stated in HPI) Physical Exam Exam Comments Patient ambulates with a wheelchair due to left-sided deficits status post stroke several years back General Appearance: Mild Distress (Moderate distress due to constipation issues. Patient appears to be in poor overall health.), Normal HEENT: Normal ENT Inspection, Pharynx Normal, TMs Normal Neck: Full Range of Motion, Non-Tender, Normal, Normal Inspection Respiratory: Chest Non-Tender, Lungs Clear, No Accessory Muscle Use, No Respiratory Distress, Normal Breath Sounds Cardiovascular: No Edema, No JVD, No Murmur, No Gallop, Normal Peripheral Pulses, Regular Rate/Rhythm Breast Exam: Deferred Gastrointestinal: No Pulsatile Mass, Normal Bowel Sounds, Other (Moderate diffuse tenderness to palpation throughout. Mildly rigid abdomen.) Genitalia: Deferred Pelvic: Deferred Rectal: Deferred Extremities: Other (Patient utilize a wheelchair due to left-sided weakness status post stroke) Neurologic: Alert, No Motor Deficits, Normal Affect, Normal Mood, No Sensory Deficits Cerebellar Function: NOT DONE Reflexes: NOT DONE Skin: Dry, Normal Color, Warm Lymphatic: No Adenopathy Was a procedure done? Was a procedure done?: No Differential Dx Considerations may include: Constipation, bowel obstruction X-Ray, Labs, Meds, VS Vital Signs Date Time Temp Pulse Resp B/P (MAP) Pulse Ox O2 Delivery O2 Flow Rate FiO2 08/29/24 21:21 98.0 70 18 133/70 (91) 99 98.0 Lab Test 08/29/24 21:50 Range/Units White Blood Count 4.8 4.4-10.8 10^3/uL Red Blood Count 3.34 L 4.5-5.90 10^6/uL Hemoglobin 10.2 L 13.5-17.5 g/dL Hematocrit 29.9 L 41.0-53.0 % Mean Corpuscular Volume 89.5 80.0-100.0 fL Mean Corpuscular Hemoglobin 30.6 28.0-32.0 pg Mean Corpuscular Hemoglobin Concent 34.2 32.0-36.0 g/dL Red Cell Distribution Width 17.8 H 11.8-14.3 % Platelet Count 246 140-450 10^3/uL Mean Platelet Volume 6.7 L 6.9-10.8 fL Neutrophils (%) (Auto) 56.1 37.0-80.0 % Lymphocytes (%) (Auto) 31.2 10.0-50.0 % Monocytes (%) (Auto) 6.8 0.0-12.0 % Eosinophils (%) (Auto) 4.3 0.0-7.0 % Basophils (%) (Auto) 1.6 0.0-2.0 % Neutrophils # (Auto) 2.7 1.6-8.6 10 ^3/uL Lymphocytes # (Auto) 1.5 0.4-5.4 10 ^3/uL Monocytes # (Auto) 0.3 0-1.3 10 ^3/uL Eosinophils # (Auto) 0.2 0-0.8 10 ^3/uL Basophils # (Auto) 0.1 0-0.2 10 ^3/uL Nucleated Red Blood Cells 0.1 % Sodium Level 137 136-145 mmol/L Potassium Level 4.6 3.5-5.1 mmol/L Chloride Level 96 L 98-107 mmol/L Carbon Dioxide Level 29 20-31 mmol/L Anion Gap 12 5-15 Blood Urea Nitrogen 48 H 9-23 mg/dL Creatinine 6.86 H 0.700-1.30 mg/dL Glomerular Filtration Rate Calc 9 >90 mL/min BUN/Creatinine Ratio 7.0 L 10.0-20.0 Serum Glucose 136 H 74-106 mg/dL Calcium Level 8.6 L 8.7-10.4 mg/dL Lipase 27 12-53 U/L X-Ray, Labs, Meds, VS Comment All studies performed the ED were evaluated by me personally. Serum laboratories were unremarkable for any systemic process. KUB confirmed a stool burden. Patient will be provided with lactulose and Fleet enemas until he passes stool. Patient will be sent home with a prescription for lactulose and additionally, patient has been advised to follow up with the primary care provider for discussions related to recurrent constipation issues. Time of 1ST Reevaluation: 01:07 Reevaluation 1ST: Improved Consultation: PCP Patient Education/Counseling: Diagnosis, Treatment Family Education/Counseling: Diagnosis, Treatment, No Family Present SEPSIS Sepsis Screen Date sepsis recognized/suspect: Aug 29, 2024 Time Sepsis recognized/suspect: 2109 Recent Procedure: No On Antibiotic Therapy: No Respiratory Rate >20: No Heart Rate >90: No Temp<36 C (96.8 F) or >38.3 C: No SBP <90 or MAP <65 mmHG: No New Acute Mental Status Change: No Is the patient on CPAP, BIPAP,: No Physician Orders Kub Abdomen Single View (08/29/24 21:29) Vital Signs Date Time Temp Pulse Resp B/P (MAP) Pulse Ox O2 Delivery O2 Flow Rate FiO2 08/29/24 21:21 98.0 70 18 133/70 (91) 99 98.0 Laboratory Tests Test 08/29/24 21:50 White Blood Count 4.8 10^3/uL (4.4-10.8) Departure 1 Departure Time of Disposition: 01:07 Impression: Primary Impression: Constipation Disposition: HOME / SELF CARE / HOMELESS Condition: Stable Additional Instructions: Advised patient utilize medication as needed for constipation relief. Patient should practice good hydration and healthy nutrition including increase in fiber in his diet. Patient should be utilizing 4-5 dried prunes daily e-Prescriptions Lactulose (Lactulose) 10 Gm/15 Ml Page 10 GM PO BIDP PRN, #150 ML 1 Refill Prov: CHARLENE FREITAS PAC 08/30/24 Discharged With: Self, Friend Critical Care Note Critical Care Time?: No Stability Stability form required: No Heart Score Heart Score: Heart Score Response (Comments) Value History N/A 0 EKG N/A 0 Age N/A 0 Risk Factors N/A 0 Troponin N/A 0 Total 0 I personally scribed for CHARLENE FREITAS PAC ([email or web address]) on 08/29/24 at 21:45. Electronically submitted by Jefry Mosley ([email or web address]). CHARLENE FREITAS PAC Aug 29, 2024 21:45
[2024-08-29 22:03] LABS: Basophils # (auto) 0.1 10 ^3/uL (0-0.2); Basophils % (auto) 1.6 % (0.0-2.0); Eosinophils # (auto) 0.2 10 ^3/uL (0-0.8); Eosinophils % (auto) 4.3 % (0.0-7.0); Hematocrit 29.9 % (41.0-53.0); Hemoglobin 10.2 g/dL (13.5-17.5); Lymphocytes # (auto) 1.5 10 ^3/uL (0.4-5.4); Lymphocytes % (auto) 31.2 % (10.0-50.0); Mean Corpuscular Hemoglobin 30.6 pg (28.0-32.0); Mean Corpuscular Hgb Conc. 34.2 g/dL (32.0-36.0); Mean Corpuscular Volume 89.5 fL (80.0-100.0); Monocytes # (auto) 0.3 10 ^3/uL (0-1.3); Monocytes % (auto) 6.8 % (0.0-12.0); Neutrophils # (auto) 2.7 10 ^3/uL (1.6-8.6); Neutrophils % (auto) 56.1 % (37.0-80.0); Nucleated Red Blood Cells % 0.1 %; Platelet Count (auto) 246 10^3/uL (140-450); Red Blood Cells 3.34 10^6/uL (4.5-5.90); Red Cell Distribution Width 17.8 % (11.8-14.3); White Blood Cell 4.8 10^3/uL (4.4-10.8)
[2024-08-29 22:16] LABS: Potassium 4.6 mmol/L (3.5-5.1); Sodium 137 mmol/L (136-145)
[2024-08-29 22:17] LABS: Anion Gap 12 (5-15); Carbon Dioxide 29 mmol/L (20-31)
--- NOTE | 2024-08-29 22:21 | DVH ---
Date: 08/29/2024 09:54 PM Examination: XY KUB ABDOMEN SINGLE VIEW History: Constipation Comparison: None TECHNIQUE: Frontal views of the abdomen was obtained. FINDINGS: Bowel gas pattern is unremarkable. No findings to suggest obstruction. Stool throughout the colon may represent constipation. The lung bases are unremarkable. No acute osseous abnormality identified. IMPRESSION: 1. Nonobstructive bowel gas pattern. 2. Stool throughout the colon may represent constipation. HS:Y
[2024-08-29 22:22] LABS: Lipase 27 U/L (12-53)
[2024-08-29 22:32] LABS: Blood Urea Nitrogen 48 mg/dL (9-23); Calcium 8.6 mg/dL (8.7-10.4); Chloride 96 mmol/L (98-107); Glucose 136 mg/dL (74-106)
[2024-08-30] MEDS ORDERED: LACT10SO3 PO (01:08)
[2024-08-30] MEDS: FLEET ENEMA(ADULT) 135 ML PR ONE (01:29)
[2024-08-30 01:30] VITALS: BP 139/72; PULSE 77; RESP 16; TEMP 98; O2SAT 99
[2024-08-30] MEDS: LACTULOSE 20Gm/30ML SOLN PO ONE (01:30)
== END 2024-08-30 01:54 | disposition home or self-care (01) ==
LOC: ER 21:06
DX: K59.00 Constipation, unspecified (principal); I13.2 Hypertensive heart and chronic kidney disease with heart failure and with stage 5 chronic kidney disease, or end stage renal disease; E11.22 Type 2 diabetes mellitus with diabetic chronic kidney disease; I50.9 Heart failure, unspecified; N18.6 End stage renal disease; Z86.73 Personal history of transient ischemic attack (TIA), and cerebral infarction without residual deficits; Z79.899 Other long term (current) drug therapy
CPT/HCPCS: 36415; 74018; 80048; 83690; 85025

== ENCOUNTER 2025-01-02 20:27 | Emergency (ER) | payer MEDICAID ==
[~2025-01-02] VITALS: Ht 157.5 cm; Wt 57.0 kg
[~2025-01-02 20:27] MED LIST changes: +LACT10SO3 PO
[2025-01-02 20:54] LABS: Hematocrit 35.5 % (41.0-53.0); Hemoglobin 12.0 g/dL (13.5-17.5); Mean Corpuscular Hemoglobin 30.9 pg (28.0-32.0); Mean Corpuscular Volume 91.1 fL (80.0-100.0); Nucleated Red Blood Cells % 0.1 %
--- NOTE | 2025-01-02 20:56 | ED.PDOC ---
History of Present Illness HPI Comments 54 y/o M is BBA for c/c headache and nausea. Significant history of anemia, CHF, CVA w/left-sided deficits, DM, ESRD w/HD M/W/F, and HTN. Per EMS personnel report, patient endorses on 2x day history of symptoms following unprovoked and atraumatic onset. Pain is localized to his right-sided bahai regions. Patient also states on calling, due to checking and noticing his blood pressure being elevated and showing no improvement after last taking 0.2mg of his Clonidine medication at 1830, this evening. He denies on having any vision or speech changes, weakness, vomiting, or further acute symptoms. En route, patient received 4mg Zofran. Upon arrival to ED, all vitals stable and within normal limits except for a blood pressure of 170/90. Chief Complaint: Headache Time Seen by MD: 20:30 Primary Care Provider: ambrose Reviewed Notes: Nurses Notes, Eeg Technician Notes, Medications, Allergies Allergies: Coded Allergies: NO KNOWN ALLERGIES (Unverified , 05/25/24) Home Meds Active Scripts Lactulose (Lactulose) 10 Gm/15 Ml Page, 10 GM PO BIDP PRN, #150 ML 1 Refill Prov:CHARLENE FREITAS PAC 08/30/24 Azithromycin (Zithromax) 250 Mg Tab, 250 MG PO DAILY for 5 Days, #5 TAB Prov:PRIMO CAMACHO MD 08/19/24 B-Complex W/ C & Folic Acid (Nephro Vitamins 0.8 mg) 1 Tab Tab, 1 TAB PO DAILY for 30 Days, #30 TAB 3 Refills Prov:PRIMO CAMACHO MD 08/19/24 Ciprofloxacin-Hydrocortisone (Cipro Hc 0.2-1 %) 1 Yaritza Yaritza, 4 DROP OT BID, #7.5 ML Prov:LONDON VERMA 06/25/24 Acetaminophen (Tylenol Extra Strength Fo) 500 Mg Tab, 1000 MG PO BID, #30 TAB Prov:LONDON VERMA 06/25/24 Reported Medications Atorvastatin Calcium (ATORVASTATIN CALCIUM) Unknown Strength Tab, PO DAILY, #30 TAB 5 Refills 08/17/24 Amlodipine Besylate (Amlodipine Besylate) Unknown Strength Tab, PO DAILY for 30 Days, MG 08/17/24 Citalopram Hydrobromide (Citalopram Hydrobromide) Unknown Strength Tab, PO DAILY for 30 Days, MG 08/17/24 Aspirin (Aspir-Low) 81 Mg Tab, 81 MG PO DAILY for 30 Days, MG 08/17/24 Hydroxyzine Hcl (Hydroxyzine Hcl) Unknown Strength Tab, PO for 30 Days, MG 08/17/24 Carvedilol (Carvedilol) Unknown Strength Tab, PO BID for 30 Days, MG 08/17/24 Information Source: Patient, Emergency Med Personnel Mode of Arrival: EMS Severity: Moderate Timing: Days Duration: Since onset Prehospital treatment: [facility] Coordinator Past Medical History PAST MEDICAL HISTORY: Anemia, CHF, CVA (with left-sided deficits), DM, ESRD (w/HD M/W/F), HTN Surgical History: Denies all surgeries Family History Family History: Reviewed,noncontributory to illness Social History Smoker: Non-Smoker Alcohol: Denies ETOH Use Drugs: Denies Drug Use Lives In: Home Constitutional: denies: chills, diaphoresis, fatigue, fever, malaise, sweats, weakness, others EENTM: denies: blurred vision, double vision, ear bleeding, ear discharge, ear drainage, ear pain, ear ringing, eye pain, eye redness, hearing loss, mouth pain, mouth swelling, nasal discharge, nose bleeding, nose congestion, nose pain, photophobia, tearing, throat pain, throat swelling, voice changes, others Respiratory: denies: cough, hemoptysis, orthopnea, SOB at rest, shortness of breath, SOB with excertion, stridor, wheezing, others Cardiovascular: denies: chest pain, dizzy spells, diaphoresis, Dyspnea on exertion, edema, irregular heart beat, left arm pain, lightheadedness, palpitations, PND, syncope, others Gastrointestinal: reports: nausea; denies: abdomen distended, abdominal pain, blood streaked bowels, constipated, diarrhea, dysphagia, difficulty swallowing, hematemesis, melena, poor appetite, poor fluid intake, rectal bleeding, rectal pain, vomiting, others Genitourinary: denies: burning, dysuria, flank pain, frequency, hematuria, incontinence, penile discharge, penile sore, pain, testicle pain, testicle swelling, urgency, others Neurological: reports: headache; denies: dizziness, fainting, left sided numbness, left sided weakness, numbness, paresthesia, pre-existing deficit, right sided numbness, right sided weakness, seizure, speech problems, tingling, tremors, weakness, others Musculoskeletal: denies: back pain, gout, joint pain, joint swelling, muscle pain, muscle stiffness, neck pain, others Integumetry: denies: bruises, change in color, change in hair/nails, dryness, laceration, lesions, lumps, rash, wounds, others Allergic/Immunocompromised: denies: Difficulty Healing, Frequent Infections, Hives, Itching, others Hematologic/Lymphatic: denies: anemia, blood clots, easy bleeding, easy bruising, swollen glands, others Endocrine: denies: excessive hunger, excessive sweating, excessive thirst, excessive urination, flushing, intolerance to cold, intolerance to heat, unexplained weight gain, unexplained weight loss, others Psychiatric: denies: anxiety, bipolar disorder, depression, hopeless, panic disorder, schizophrenia, sleepless, suicidal, others All Other Systems: Reviewed and Negative (Comprehensive review of systems are negative unless stated in HPI) Physical Exam General Appearance: Moderate Distress ([id number] distress due to headache pain concerns.), Normal HEENT: Head (Unremarkable cranial evaluation. No signs of trauma. No skull depressions or deformities. No signs of arterial engorgement or pulsatile masses.), Normal ENT Inspection, Pharynx Normal, TMs Normal Neck: Full Range of Motion, Non-Tender, Normal, Normal Inspection Respiratory: Chest Non-Tender, Lungs Clear, No Accessory Muscle Use, No Respiratory Distress, Normal Breath Sounds Cardiovascular: No Edema, No JVD, No Murmur, No Gallop, Normal Peripheral Pulses, Regular Rate/Rhythm Breast Exam: Deferred Gastrointestinal: No Organomegaly, Non Tender, No Pulsatile Mass, Normal Bowel Sounds, Soft Genitalia: Deferred Pelvic: Deferred Rectal: Deferred Extremities: No calf tenderness, Non-tender Neurologic: Alert Cerebellar Function: NOT DONE Reflexes: NOT DONE Skin: Dry, Normal Color, Warm Lymphatic: No Adenopathy Was a procedure done? Was a procedure done?: No Differential Dx Considerations may include: CVA - ischemic vs hemorrhagic, intracranial hemorrhaging, aneurysm, hypertensive emergency, dehydration, electrolyte imbalance, migraines, tension headache, among others X-Ray, Labs, Meds, VS Vital Signs Date Time Temp Pulse Resp B/P (MAP) Pulse Ox O2 Delivery O2 Flow Rate FiO2 01/03/25 02:00 76 14 159/81 (107) 97 01/03/25 01:00 79 13 155/83 (107) 96 01/02/25 23:00 74 12 130/75 (93) 97 01/02/25 21:49 158/83 01/02/25 21:06 97.1 75 16 158/83 (108) 97 97.1 01/02/25 21:06 Room Air* 0 21 01/02/25 20:34 97.9 74 16 170/90 100 97.9 Lab Test 01/02/25 21:29 01/02/25 20:45 Range/Units Troponin I High Sensitivity 6 7 </=54 ng/L White Blood Count 4.6 4.4-10.8 10^3/uL Red Blood Count 3.89 L 4.5-5.90 10^6/uL Hemoglobin 12.0 L 13.5-17.5 g/dL Hematocrit 35.5 L 41.0-53.0 % Mean Corpuscular Volume 91.1 80.0-100.0 fL Mean Corpuscular Hemoglobin 30.9 28.0-32.0 pg Mean Corpuscular Hemoglobin Concent 33.9 32.0-36.0 g/dL Red Cell Distribution Width 17.8 H 11.8-14.3 % Platelet Count 153 140-450 10^3/uL Mean Platelet Volume 7.1 6.9-10.8 fL Neutrophils (%) (Auto) 62.1 37.0-80.0 % Lymphocytes (%) (Auto) 28.3 10.0-50.0 % Monocytes (%) (Auto) 5.5 0.0-12.0 % Eosinophils (%) (Auto) 3.0 0.0-7.0 % Basophils (%) (Auto) 1.1 0.0-2.0 % Neutrophils # (Auto) 2.9 1.6-8.6 10 ^3/uL Lymphocytes # (Auto) 1.3 0.4-5.4 10 ^3/uL Monocytes # (Auto) 0.3 0-1.3 10 ^3/uL Eosinophils # (Auto) 0.1 0-0.8 10 ^3/uL Basophils # (Auto) 0.1 0-0.2 10 ^3/uL Nucleated Red Blood Cells 0.1 % Sodium Level 135 L 136-145 mmol/L Potassium Level 4.3 3.5-5.1 mmol/L Chloride Level 95 L 98-107 mmol/L Carbon Dioxide Level 28 20-31 mmol/L Anion Gap 12 5-15 Blood Urea Nitrogen 41 H 9-23 mg/dL Creatinine 6.49 H 0.700-1.30 mg/dL Glomerular Filtration Rate Calc 9 >90 mL/min BUN/Creatinine Ratio 6.3 L 10.0-20.0 Serum Glucose 129 H 74-106 mg/dL Lactic Acid Level 0.6 0.4-2.0 mmol/L Calcium Level 9.0 8.7-10.4 mg/dL Total Bilirubin 0.5 0.2-1.0 mg/dL Aspartate Amino Transferase (AST) 11 L 13-40 U/L Alanine Aminotransferase (ALT) 17 7-40 U/L Alkaline Phosphatase 101 46-116 U/L Total Protein 6.9 5.7-8.2 g/dL Albumin 4.0 3.2-4.8 g/dL Lipase 33 12-53 U/L Current Medications Medications (Trade) Dose Ordered Sig/Jaxon Route Start Time Stop Time Status Last Admin Hydralazine HCl (Apresoline Injection) 10 mg ONCE ONCE IV 01/02/25 20:45 01/02/25 20:46 DC 01/02/25 21:49 X-Ray, Labs, Meds, VS Comment All studies performed the ED were evaluated by me personally. Serum studies were unremarkable for any acute concerns, but confirmation of the patient's end- stage renal disease. Patient can not produce urine. CT of the head was unremarkable for any intracranial neoplasms, subarachnoid concerns for subdural concerns. Medication improve with the patient's blood pressure to an acceptable zone. No skull fractures. Patient appears to be suffering from a bad headache. Patient will require transportation assistance back to his home. Patient will remain in the ED overnight until transportation can be established in the morning. Advised patient discuss improved blood pressure management with his primary care provider Time of 1ST Reevaluation: 23:52 Reevaluation 1ST: Improved Consultation: PCP Patient Education/Counseling: Diagnosis, Treatment Family Education/Counseling: Diagnosis, Treatment, No Family Present SEPSIS Sepsis Screen Date sepsis recognized/suspect: Jan 02, 2025 Time Sepsis recognized/suspect: 2026 Recent Procedure: No On Antibiotic Therapy: No Respiratory Rate >20: No Heart Rate >90: No Temp<36 C (96.8 F) or >38.3 C: No SBP <90 or MAP <65 mmHG: No New Acute Mental Status Change: No Is the patient on CPAP, BIPAP,: No Physician Orders Urinalysis (01/02/25 20:38) Head Without Contrast (01/02/25 20:38) Accucheck (01/02/25 20:38) Heplock Iv (01/02/25 ) Vital Signs Date Time Temp Pulse Resp B/P (MAP) Pulse Ox O2 Delivery O2 Flow Rate FiO2 01/03/25 02:00 76 14 159/81 (107) 97 01/03/25 01:00 79 13 155/83 (107) 96 01/02/25 23:00 74 12 130/75 (93) 97 01/02/25 21:49 158/83 01/02/25 21:06 97.1 75 16 158/83 (108) 97 97.1 01/02/25 21:06 Room Air* 0 21 01/02/25 20:34 97.9 74 16 170/90 100 97.9 Laboratory Tests Test 01/02/25 20:45 Lactic Acid Level 0.6 mmol/L (0.4-2.0) White Blood Count 4.6 10^3/uL (4.4-10.8) Medications Medications Dose Ordered Sig/Jaxon Route Start Time Stop Time Status Last Admin Dose Admin Hydralazine HCl 10 mg ONCE ONCE IV 01/02/25 20:45 01/02/25 20:46 DC 01/02/25 21:49 Departure 1 Departure Time of Disposition: 23:54 Impression: Primary Impression: Acute headache Additional Impressions: End stage renal disease on dialysis Hypertensive urgency Disposition: HOME / SELF CARE / HOMELESS Condition: Stable Additional Instructions: Patient has been advised to follow up with his primary care provider for discussions related to improved medication management of what is currently not well controlled hypertension. Patient should maintain his dialysis appointments as scheduled. Discharged With: Self, Friend Critical Care Note Critical Care Time?: No Stability Stability form required: No Heart Score Heart Score: Heart Score Response (Comments) Value History N/A 0 EKG N/A 0 Age N/A 0 Risk Factors N/A 0 Troponin N/A 0 Total 0 I personally scribed for CHARLENE FREITAS ([email or web address]) on 01/02/25 at 20:56. Electronically submitted by Jefry Mosley ([email or web address]). I personally scribed for JEROME SAUCEDO DO ([email or web address]) on 01/03/25 at 04:12. Electronically submitted by Burak Rosado ([email or web address]). CHARLENE FREITAS Jan 02, 2025 20:56 JEROME SAUCEDO DO Jan 03, 2025 04:12
[2025-01-02 21:06] VITALS: TEMP 97.1
[2025-01-02 21:12] LABS: Alanine Aminotransferase 17 U/L (7-40); Albumin 4.0 g/dL (3.2-4.8); Alkaline Phosphatase 101 U/L (46-116); Anion Gap 12 (5-15); BUN/Creatinine Ratio 6.3 (10.0-20.0); Bilirubin, Total 0.5 mg/dL (0.2-1.0); Calcium 9.0 mg/dL (8.7-10.4); Carbon Dioxide 28 mmol/L (20-31); Lipase 33 U/L (12-53); Potassium 4.3 mmol/L (3.5-5.1); Total Protein 6.9 g/dL (5.7-8.2)
--- NOTE | 2025-01-02 21:21 | DVH ---
EXAM: CT HEAD WITHOUT CONTRAST INDICATION: Severe right-sided headache TECHNIQUE: CT images of the head were obtained without administration of IV contrast. CT scans at [facility] use dose modulation, iterative reconstruction, and/or weight based dosing when appropriate to reduce radiation dose to as low as reasonably achievable. COMPARISON: CT HEAD WITHOUT CONTRAST on DOS: 06/25/24 FINDINGS: PARENCHYMA: No acute hemorrhage. There is no mass effect, midline shift, or herniation. There is pres ervation of the macdonald white differentiation. Mild scattered hypoattenuation along the periventricular, centrum semiovale, and deep white matter tracts, which are nonspecific however statistically most li aris represent chronic microvascular ischemic change. VENTRICLES: No hydrocephalus. EXTRA-AXIAL SPACES: No extra-axial fluid collections. OTHER: The bony structures are intact. Visualized portions of the paranasal sinuses and mastoid air cells are clear. IMPRESSION: 1. No CT evidence of an acute intracranial abnormality.
[2025-01-02 21:32] LABS: Blood Urea Nitrogen 41 mg/dL (9-23); Chloride 95 mmol/L (98-107); Glucose 129 mg/dL (74-106); Sodium 135 mmol/L (136-145)
[2025-01-02] MEDS: hydrALAZINE HCL 20 MG/ML VL IV ONE (21:49)
[2025-01-03] MEDS ORDERED: hydrALAZINE HCL 20 MG/ML VL IV ONE
[2025-01-03 06:14] VITALS: BP 151/84; PULSE 76; RESP 16; O2SAT 98
== END 2025-01-03 16:19 | disposition home or self-care (01) ==
LOC: ER 20:27 → EDBD 20:27 → EDUNIT# 20:27 → ER 01-03 06:17
DX: R51.9 Headache, unspecified (principal); I13.2 Hypertensive heart and chronic kidney disease with heart failure and with stage 5 chronic kidney disease, or end stage renal disease; E11.22 Type 2 diabetes mellitus with diabetic chronic kidney disease; N18.6 End stage renal disease; I50.9 Heart failure, unspecified; I16.0 Hypertensive urgency; D64.9 Anemia, unspecified; Z79.82 Long term (current) use of aspirin; Z79.899 Other long term (current) drug therapy; Z86.73 Personal history of transient ischemic attack (TIA), and cerebral infarction without residual deficits; Z99.2 Dependence on renal dialysis
CPT/HCPCS: 36415; 70450; 80053; 83605; 83690; 84484; 85025; 96374; 99285; J0360